=== PATIENT | male | born 1955 | race Caucasian/White ===

== ENCOUNTER 2020-10-16 10:18 | Observation (INO) ==
--- NOTE | 2020-09-24 12:11 | PAT Medication Instructions ---
Medication Instructions Date of Service September 24, 2020 Home Medications betamethasone valerate 1 applic TOPICAL BID PRN cephalexin 500 mg PO TID PRN cholecalciferol (vitamin D3) 1,000 unit PO QAM folic acid 1 mg PO QAM furosemide 20 mg PO DAILY PRN methotrexate sodium 20 mg PO WK omeprazole 20 mg PO QAM prednisone 5 mg PO QAM Continue as directed betamethasone valerate 1 applic TOPICAL BID PRN (just do not use near surgical site prior to surgery) ASK your prescriber and surgeon methotrexate sodium 20 mg PO WK DO NOT take the morning of surgery cholecalciferol (vitamin D3) 1,000 unit PO QAM folic acid 1 mg PO QAM furosemide 20 mg PO DAILY PRN Take morning of surgery With a small sip of water, OTHERWISE NOTHING TO EAT OR DRINK AFTER MIDNIGHT: cephalexin 500 mg PO TID PRN (if needed) omeprazole 20 mg PO QAM prednisone 5 mg PO QAM Take evening before surgery cephalexin 500 mg PO TID PRN (if needed) furosemide 20 mg PO DAILY PRN (if needed) Other Notes If you have any questions please call us at [phone] or [phone] or [phone] or [phone]
--- NOTE | 2020-09-29 14:29 | Anesthesiology Consultation ---
Date of Service September 29, 2020 Assessment & Plan (1) Encounter for pre-operative examination: COVID Status: As of 09/29 assessment, patient denies travel to endemic area, known exposure/sick contacts, or symptoms of COVID19. Patient instructed that they and their household members must follow strict social distancing guidelines, wear a mask in public and avoid travel/events/gatherings for 14 days prior to surgery. Preoperative COVID19 testing to be completed prior to surgery per surgeon's arrangements. Patient made aware to self-isolate as much as possible between COVID testing and surgery. *Presumably will have SAB for ALLEN, but FYI likely difficult intubation based on exam -- had SAB for inguinal hernia repair at [facility] in 2014, but no indication in records as to the reason for this. Chart Review Chart Review: Acceptable Risk for Surgery and Patient seen in Pre Admission Testing Teaching & Discussion Instructed NPO after midnight before surgery, except medications with 15 cc of water. Medication instructions provided according to the PAT guidelines. History Surgery Operation Date: 10/16/20 07:00 Proposed Procedures p Right Lateral Total Hip Arthroplasty - Reginaldo Hayes, Height/Weight Height: 5 ft 8 in Weight: 103.2 kg Allergies Allergy/AdvReac Type Severity Reaction Status Date / Time No Known Allergies Allergy Verified 08/31/20 10:23 Medications Home Medications Medication Instructions Recorded Confirmed Last Taken betamethasone valerate 1 applic TOPICAL BID PRN #0 06/10/13 09/29/20 Unknown cephalexin 500 mg PO TID PRN #0 06/10/13 09/29/20 Unknown cholecalciferol (vitamin D3) 1,000 unit PO QAM #0 tab 06/10/13 09/29/20 03/11/19 folic acid 1 mg PO QAM #0 06/10/13 09/29/20 03/11/19 furosemide 20 mg PO DAILY PRN #0 tab 06/10/13 09/29/20 Unknown methotrexate sodium 20 mg PO WK #0 tab 06/10/13 09/29/20 03/06/19 omeprazole 20 mg PO QAM #0 cap 06/10/13 09/29/20 03/11/19 prednisone 5 mg PO QAM 03/11/19 09/29/20 03/11/19 Past Medical History Medical History Cervical pain (neck) GERD (gastroesophageal reflux disease) Rheumatoid arthritis Exercise / Class Metabolic Activity III < 4 Walking/Shop/Light housework (Denies CP or SOB with ambulation, limited by hip pain, uses stair lift) Past Surgical History Surgical History History of colonoscopy History of esophagogastroduodenoscopy (EGD) History of surgery on left wrist History of surgery on right wrist Hx of hand surgery left/ right x2 arthritis related Hx of inguinal hernia repair Hx of surgical procedure cyst removed from side of left knee Past Anesthesia History No Hx of Anesthesia Complications and No Family Hx of Anesthesia Complications History of PONV No Hx of PONV and No Hx of Motion Sickness Social History Smoking Status: Former smoker Do You Dip or Chew Tobacco: No Smoking End Date: as teen Hx Alcohol Use: No Hx Substance Use: Yes substance use type: marijuana Substance Use Type Other:: marijuana use sporadic > not daily Review of Systems Pt denies any recent chest pain, shortness of breath, palpitations, cough, fever, URI, or uncontrolled acid reflux (on PPI). Physical Exam Vital Signs BP: 162/82 (pt reports h/o white coat HTN) P: 68bpm SPO2: 96% RA T: 98.4 F R: 12 ENMT Mouth: + TMJ abnormality (narrow opening ) and + small oral opening Thyromental Distance: < 3.5 Finger Breadths (2.5) Mallampati Class: IV Neck + thick neck and + limited neck extension Respiratory normal respiratory effort, lungs clear to auscultation Cardiovascular Rate/Rhythm: regular rate and regular rhythm Heart Sounds: + murmur (I/ systolic) Extremities: + edema (Rt ankle edema, chronic, at baseline per pt) Musculoskeletal Kennard neck deformities of all fingers. RA deformities of B/L wrists. Testing Laboratory Results 09/29/20 14:50 09/29/20 14:50 PT 10.6 Seconds (9.0-12.0) 09/29/20 14:50 INR 1.0 (0.9-1.1) 09/29/20 14:50 APTT 26.9 Seconds (21.0-31.0) 09/29/20 14:50 Blood Type A Positive 09/29/20 14:50 Antibody Screen NEGATIVE 09/29/20 14:50 Electrocardiogram Date: 09/29/20 Findings: + NSR @ (70bpm) Chest X-Ray Date: 09/29/20 Findings: + NAD Cervical Spine Date: 09/29/20 FINDINGS: The cervical spine is visualized from C1 through the superior endplate of T1. Alignment is intact. No fracture or subluxation. Moderate facet degenerative changes within the cervical spine which have progressed. There are also advanced degenerative changes at the C1-C2 interval which has progressed. Prevertebral soft tissues are intact. Disc spaces are preserved. The alignment remains intact throughout flexion and extension. IMPRESSION: 1. No fracture or subluxation within the cervical spine. 2. The alignment remains intact throughout flexion and extension.
[2020-09-29 15:14] LABS: Basophils # (auto) 0.03 K/uL (0-0.2); Basophils % (auto) 0.3 %; Eosinophils # (auto) 0.11 K/uL (0-0.5); Eosinophils % (auto) 1.1 %; Hematocrit (blood only) 44.8 % (42-52); Hemoglobin 15.2 g/dL (14.0-18.0); Immature Granulocytes # (auto) 0.02 K/uL (0.00-0.02); Immature Granulocytes % (auto) 0.2 %; Lymphocytes # (auto) 0.93 K/uL (1.2-3.4); Mean Corpuscular Hemoglobin 32.2 pg (25-34); Mean Corpuscular Hgb Conc 33.9 g/dL (32-36); Mean Corpuscular Volume 94.9 fL (80-100); Mean Platelet Volume 10.1 fL (7.4-10.4); Monocytes % (auto) 6.8 %; Neutrophils # (auto) 8.53 K/uL (1.4-6.5); Neutrophils % (auto) 82.6 %; Platelet Count 226 K/uL (130-400); RDW Coefficient of Variation 13.3 % (11.5-14.5); Red Blood Count 4.72 M/uL (4.7-6.1); White Blood Count 10.32 K/uL (4.8-10.8)
[2020-09-29 15:28] LABS: Partial Thromboplastin Time 26.9 Seconds (21.0-31.0); Prothrombin Time 10.6 Seconds (9.0-12.0)
--- NOTE | 2020-09-29 15:37 | XRay Report ---
XR chest Pre-admission PA/Lat CLINICAL HISTORY: Preoperative chest COMPARISON STUDY: No previous studies for comparison. FINDINGS: The cardiac and mediastinal contours are normal. There is no evidence of focal pulmonary co nsolidation. There is no evidence of failure. No pleural effusions are visualized.[ IMPRESSION: No active disease in the chest. ACT 112: Negative or not required by law. Electronically signed by: Royal Paul M.D. 09/29/2020 3:35 PM
--- NOTE | 2020-09-29 15:43 | XRay Report ---
XR cervical spine 2 or 3V CLINICAL HISTORY: pre op. Rheumatoid arthritis. Lateral flexion/extension/neutral. COMPARISON STUDY: Cervical spine 06/10/2013. FINDINGS: The cervical spine is visualized from C1 through the superior endplate of T1. Alignment is intact. No fracture or subluxation. Moderate facet degenerative changes within the cervical spine whi ch have progressed. There are also advanced degenerative changes at the C1-C2 interval which has prog ressed. Prevertebral soft tissues are intact. Disc spaces are preserved. The alignment remains intact throughout flexion and extension. IMPRESSION: 1. No fracture or subluxation within the cervical spine. 2. The alignment remains intact throughout flexion and extension. ACT 112: Negative or not required by law. Electronically signed by: Raymond Reddy M.D. 09/29/2020 3:42 PM
[2020-09-29 16:47] LABS: Calcium 8.8 mg/dl (8.5-10.1); Creatinine Clr Calc Pharmacy 98.6 ml/min; Est GFR (Non-African American) 90.6; Potassium 3.9 mmol/L (3.5-5.1)
--- NOTE | 2020-09-30 06:34 | Electrocardiogram Report ---
Test Reason : Blood Pressure : / mmHG Vent. Rate : 070 BPM Atrial Rate : 070 BPM P-R Int : 126 ms QRS Dur : 088 ms QT Int : 398 ms P-R-T Axes : 074 017 026 degrees QTc Int : 429 ms Normal sinus rhythm Normal ECG No previous ECGs available Confirmed by Sam Alvarado ([id number]) on 09/30/2020 6:34:01 AM Referred By: Reginaldo Hayes Confirmed By:Sam Alvarado
--- NOTE | 2020-10-15 15:44 | History & Physical Report ---
Date of Service October 15, 2020 Assessment & Plan (1) Rheumatoid arthritis involving right hip: We will proceed with a right total hip arthroplasty. Postoperatively he will be started on aspirin for DVT prophylaxis and kept overnight in the hospital for postoperative medical management. He plans to use [facility] upon discharge. History of Present Illness Chief Complaint: Rheumatoid arthritis of the right hip. Primary Care Provider: Xavier Holly MD Daryl is a pleasant 65-year-old male who has been dealing with rheumatoid art hritis since he was 15 years old. He has been on long-term prednisone for it. Unfortunately he has gone on to develop advanced osteoarthritis of his right hip. After failing extensive conservative treatment, he has elected proceed with a right total hip arthroplasty.. Allergies Allergy/AdvReac Type Severity Reaction Status Date / Time No Known Allergies Allergy Verified 08/31/20 10:23 Home Medications Medication Instructions Recorded Confirmed Type betamethasone valerate 1 applic TOPICAL BID PRN #0 06/10/13 09/29/20 History cephalexin 500 mg PO TID PRN #0 06/10/13 09/29/20 History cholecalciferol (vitamin D3) 1,000 unit PO QAM #0 tab 06/10/13 09/29/20 History folic acid 1 mg PO QAM #0 06/10/13 09/29/20 History furosemide 20 mg PO DAILY PRN #0 tab 06/10/13 09/29/20 History methotrexate sodium 20 mg PO WK #0 tab 06/10/13 09/29/20 History omeprazole 20 mg PO QAM #0 cap 06/10/13 09/29/20 History prednisone 5 mg PO QAM 03/11/19 09/29/20 History Past Med/Surg History Medical History Cervical pain (neck) GERD (gastroesophageal reflux disease) Obesity Rheumatoid arthritis Surgical History History of colonoscopy History of esophagogastroduodenoscopy (EGD) History of surgery on left wrist History of surgery on right wrist Hx of hand surgery left/ right x2 arthritis related Hx of inguinal hernia repair Hx of surgical procedure cyst removed from side of left knee Social History Smoking Status: Former smoker Second Hand Exposure: No; Hx Alcohol Use: No Hx Substance Use: Yes Substance Use Type Other:: marijuana use sporadic > not daily Preferred Language: Lithuanian Communication Ability: Effective Credit Verification Clerk Required: No Beliefs That Will Affect Care: None marital status: Single Current Living Situation: Alone current occupational status: unemployed and disabled Feels Safe at Home: Yes Assistive Devices: Glasses Review of Systems All systems reviewed & are unremarkable except as noted in HPI & below. Physical Exam On physical examination of the right hip, he ambulates with a very antalgic gait. He has almost no range of motion of his hip. I can flex him but there is no internal or external rotation. All of his pain is located in his groin.. Constitutional WD/WN, vitals as above Eyes PERRL, conjunctivae normal, anicteric sclerae ENMT external ear and nose normal, oropharynx normal Neck trachea midline, no thyromegaly Respiratory normal respiratory effort Cardiovascular RRR, no murmur, no edema Gastrointestinal (Abdomen) normal bowel sounds, soft, nontender, no hepatosplenomegaly Psychiatric A+Ox3, euthymic affect Results & Data Results & Data Laboratory Results . Diagnostic Findings X-rays of the right hip show advanced rheumatoid arthritis with joint space narrowing, osteophyte formation, and [id number] articulation. PG Care Time/CCT Total # of Minutes Spent Total Time Spent with Patient: Total time spent is greater than 50% in coordination of care (as documented) at patient's floor/unit and/or counseling patient: Coding Level of Care Code None Diagnoses Rheumatoid arthritis involving right hip M06.9
[~2020-10-16 10:18] MED LIST: ACETAMINOPHEN 500 MG TAB PO SCH; BUPIVACAINE 0.5 % 5 MG/1 ML PF 10ML VIAL ONE; FAMOTIDINE 20 MG TAB PO SCH; GABAPENTIN 300 MG CAP PO SCH; LR 500ML BOLUS, THEN 15ML/HR IV SCH; LR 60ML/HR IV SCH; ROPIVACAINE 0.5% HCL/PF 150 MG, BUPIVACAINE 0.75% MPF 20 ML, EPINEPHrine 30MG/30ML (OR ... INSTIL SCH; TRANEXAMIC ACID 1,000 MG **IV Intra-op IV SCH; TRANEXAMIC ACID 1,000 MG **IV Pre-op IV SCH; dexAMETHasone 4 MG TAB PO SCH
[2020-10-16] MEDS ORDERED: HYDROmorphone INJ 1 MG/ML SYRINGE IV PRN (10:32)
[2020-10-16] MEDS ORDERED: ePHEDrine sulfate 50 MG/ML AMP IV PRN (10:32)
[2020-10-16] MEDS ORDERED: MEPERIDINE HCL 25 MG/ML CARP/VIAL IV PRN (10:32)
[2020-10-16] MEDS ORDERED: PHENYLEPHRINE 100MCG/ML 5ML SYR IV PRN (10:32)
[2020-10-16] MEDS ORDERED: LABETALOL HCL IV 5 MG/ML 20ML IV PRN (10:32)
[2020-10-16] MEDS ORDERED: ATROPINE SULFATE 0.1 MG/ML 10ML SYR IV PRN (10:32)
[2020-10-16] MEDS ORDERED: ONDANSETRON INJ 2 MG/ML 2 ML VIAL IV PRN ×2 (10:32→15:57)
[2020-10-16] MEDS ORDERED: fentaNYL citrate 100 MCG/2 ML VIAL IV PRN (10:32)
--- NOTE | 2020-10-16 10:44 | History & Physical Bridge Note ---
Date of Service October 16, 2020 History & Physical Bridge Note I have examined the patient, reviewed the History & Physical and in the interval since the performance of the History & Physical I have noted the following changes of clinical significance: no changes noted
[2020-10-16] MEDS ORDERED: ORTHO JOINT ANESTHETIC ONE (12:19)
[2020-10-16] MEDS ORDERED: LIDOCAINE HCL 2% 2 ML VIAL/AMP(20MG/ML) INFIL ONE (12:19)
[2020-10-16] MEDS ORDERED: PROPOFOL IV EMULSION 10 MG/ML 20 ML VIAL IV ONE ×3 (12:19→14:02)
[2020-10-16] MEDS ORDERED: MIDAZOLAM HCL 1 MG/ML 2ML VIAL ONE (12:20)
[2020-10-16] MEDS ORDERED: HYDROCORTISONE SOD SUCCINATE 100 MG/2 ML VIAL ONE (12:39)
[2020-10-16] MEDS ORDERED: fentaNYL citrate 100 MCG/2 ML VIAL ONE (13:02)
[2020-10-16] MEDS ORDERED: GLYCOPYRROLATE 0.2 MG/ML VIAL ONE (14:02)
[2020-10-16] MEDS ORDERED: ONDANSETRON INJ 2 MG/ML 2 ML VIAL ONE (14:19)
--- NOTE | 2020-10-16 14:45 | Operative Report ---
PG Post Operative Report Pre & Post Diagnosis Operation Date: 10/16/20 12:40 Pre-Op Diagnosis: Right Hip Rheumatoid Arthritis Post-Op Diagnosis: Right Hip Rheumatoid Arthritis I identified the patient and participated in the time-out.: Yes Procedure Operation Date: 10/16/20 12:40 Actual Procedures p Right Lateral Total Hip Arthroplasty(Right) with bone grafting of the acetabulum- Reginaldo Hayes, Surgeon Reginaldo Hayes, Adjunct Political Science Instructor Reginaldo Whatley PAC Estimated Blood Loss 250 Findings Consistent with Post-Op Diagnosis Specimens Right femoral head Complications none Disposition Disposition: Recovery Room Indications Daryl is a pleasant 65-year-old male who is been dealing with chronic increasing right hip and groin pain. X-rays and clinical examination have been diagnostic for advanced rheumatoid arthritis of the right hip. After failing conservative treatment, he has elected proceed with a right lateral total hip arthroplasty. Description of Procedure Implants used I used a Yuly Avenir total hip arthroplasty system with a size 4 high offset collared press-fit Avenir stem, a size 56 mm G7 cup with a 25 mm screw, an E1 polyethylene liner, a 40 mm ceramic head with a 0 neck Daryl arrived at the hospital for the above procedure. He was seen in the preoperative holding area and the operative extremity was identified and signed. He was given a spinal anesthetic, a preoperative antibiotic, and TXA. He was then taken back to the operating room and laid on the table in the supine position. He was given basic sedation. He was then put into the lateral decubitus position. The hip was then prepped and draped in sterile fashion. A timeout was done and the patient and the operative extremity was properly identified. A lateral approach was used. Dissection was taken down to the IT band and the IT band was split longitudinally. The abductors were exposed. The anterior third of the abductors were tenotomized off the greater trochanter. The capsule was then excised and the hip was dislocated. The femoral neck was then resected and the femoral head was removed. The acetabulum was exposed. Time was spent doing a complete circumferential capsular labral release. Sequential reaming of the acetabulum up to a size 55 reamer was done. There was a very large cyst in the acetabulum. This was filled with bone grafting from the reamings as well as the removed femoral head. Time was spent making sure the graft material was appropriately impacted within the cavity. A 56 mm G7 cup was then impacted into place. I was able to get an excellent press-fit. A single 25 mm screw was placed. The E1 polyliner was then snapped into place. Surrounding soft tissues were then injected with 100 cc of an orthopedic pain control cocktail. The proximal femur was then exposed. Sequential broaching up to a size 4 broach was done. A high offset neck and a 40 mm head with a 0 neck was impacted into place. The hip was then reduced. The hip was brought through full range of motion and felt to be stable. A single flat plate x-ray was obtained and I was happy with the overall alignment of the hip and the sizing of the components. The hip was then dislocated. The trials were then removed. The final size 4 Avenir high offset collared stem was then impacted into place. A 40 mm ceramic head with a +0 neck was then impacted onto the femoral stem. The hip was then reduced. The hip was once again brought through a full range of motion and felt to be stable. The wound was then irrigated. A 3-minute Betadine lavage was then done. The abductors were then tenodesed back to the greater trochanter with transosseous FiberWire sutures and side to side sutures. The IT band was closed with #1 Vicryl. The deep fat layer was closed with 2-0 Vicryl. Skin was closed with 2-0 Vicryl and fortunato. He was then placed in a Silverlon dressing. He was then extubated and transferred to a hospital bed. He was taken to the post anesthesia care unit in stable condition. He tolerated the procedure well. Reginaldo Whatley PA-C, was present for the entire procedure. He was critical for patient positioning, prepping, draping, retraction exposure, wound closure and application of sterile dressing. I attest to the content of the Intraoperative Record and any orders documented therein. Any exceptions are noted below.
--- NOTE | 2020-10-16 14:51 | XRay Report ---
XR hip RT 1V HISTORY: 65 years-old Male RT LATERAL HIP TO BE DONE IN OR7 @ 1240 right hip total joint arthroplast y COMPARISON: Radiographs of the right hip 08/18/2020 TECHNIQUE: 2 views of the right hip FINDINGS: Right hip total joint arthroplasty demonstrates satisfactory alignment. Expected postsurgical soft ti ssue swelling and deep tissue air. No acute fracture. Metallic folds project over the right iliac cre st, likely external to the patient. IMPRESSION: Right hip total joint arthroplasty with expected postoperative changes. ACT 112: Negative or not required by law. The above report was generated using voice recognition software. It may contain grammatical, syntax o r spelling errors. Electronically signed by: Joshua Goldberg M.D. 10/16/2020 2:49 PM
--- NOTE | 2020-10-16 15:14 | Anesthesiology Progress Note ---
Date of Service October 16, 2020 Anesthesia Post Procedure Vital Signs Vital Signs: Temp Pulse Pulse Resp BP BP Pulse Ox 10/16/20 15:10 69 16 124/72 94 10/16/20 15:00 72 18 127/72 96 10/16/20 14:50 69 17 113/77 98 10/16/20 14:44 36.1 C L 68 16 116/65 100 10/16/20 10:42 36.8 C 78 22 189/95 H 94 Transfer of Care Handoff Completed per policy Notes Mental Status: alert / awake / arousable and participated in evaluation Patient Amnestic to Procedure: Yes Nausea / Vomiting: adequately controlled Pain: adequately controlled Airway Patency, RR, SpO2: stable & adequate BP & HR: stable & adequate Hydration State: stable & adequate Anesthetic Complications: no major complications apparent and Pt Satisfied with anesthetic care
--- NOTE | 2020-10-16 15:26 | XRay Report ---
XR hip 1V RT w pelvis HISTORY: 65 years-old Male IN PACU - A/P PELVIS and LATERAL HIP right hip total joint arthroplasty COMPARISON: Radiograph the right hip 10/16/2020 TECHNIQUE: 2 views the right hip FINDINGS: Moderate left hip osteoarthritis. Right hip total joint arthroplasty demonstrates satisfactory alignm ent. No acute fracture or expected opaque foreign body. Expected postsurgical soft tissue swelling wi th deep tissue air. Overlying skin fortunato. IMPRESSION: Right hip total arthroplasty with expected postoperative changes. ACT 112: Negative or not required by law. The above report was generated using voice recognition software. It may contain grammatical, syntax o r spelling errors. Electronically signed by: Joshua Goldberg M.D. 10/16/2020 3:24 PM
[2020-10-16] MEDS: SODIUM CHLORIDE 0.9% 1000ML 1,000 ML IV SCH ×2 (15:50→23:45)
[2020-10-16] MEDS ORDERED: MAGNESIUM HYDROXIDE SUSP 30 ML UDC PO PRN (15:57)
[2020-10-16] MEDS ORDERED: bisacodyL 10 MG SUPP PR PRN (15:57)
[2020-10-16] MEDS ORDERED: HYDROmorphone INJ 0.5 MG/0.5 ML SYR IV PRN (15:57)
[2020-10-16] MEDS ORDERED: METOCLOPRAMIDE HCL INJ 5 MG/ML 2 ML VIAL IV PRN (15:57)
[2020-10-16] MEDS ORDERED: FUROSEMIDE 20 MG TAB PO PRN (15:57)
[2020-10-16] MEDS ORDERED: NALOXONE HCL 0.4 MG/1 ML VIAL/CARP IV PRN (15:57)
[2020-10-16] MEDS ORDERED: oxyCODONE HCL IR 5 MG TAB (IMMEDIATE RELEASE) PO PRN (15:57)
[2020-10-16] MEDS: KETOROLAC TROMETHAMINE 15 MG/ML VIAL IV SCH ×2 (18:02→23:45)
[2020-10-16] MEDS: ceFAZolin 2000MG 2,000 MG/15 ML SYR IV SCH (21:06)
[2020-10-16] MEDS: ASPIRIN 81 MG ECTAB PO SCH (21:07)
[2020-10-16] MEDS: SENNA 8.6 MG TAB PO SCH (21:07)
[2020-10-16] MEDS: DOCUSATE SODIUM 100 MG CAP PO SCH (21:07)
[2020-10-16] MEDS: ACETAMINOPHEN 500 MG TAB PO SCH (21:07)
[2020-10-17] MEDS: ACETAMINOPHEN 500 MG TAB PO SCH ×3 (05:42→21:42)
[2020-10-17] MEDS: ceFAZolin 2000MG 2,000 MG/15 ML SYR IV SCH (05:42)
[2020-10-17] MEDS: KETOROLAC TROMETHAMINE 15 MG/ML VIAL IV SCH ×4 (05:42→23:09)
--- NOTE | 2020-10-17 06:52 | Orthopedic Progress Note ---
Date of Service October 17, 2020 Assessment & Plan (1) History of right hip replacement: Overall is doing very well. Is not having much pain in the right hip. He will be seen by physical therapy today for ambulation and range of motion exercises. He is on aspirin for DVT prophylaxis. He does live alone. I would like to keep him in the hospital today and then likely discharge him to home tomorrow. He should be seen by case management later today. Xiao Brito was seen and examined at bedside this morning. Overall he is doing very well. Is not having much pain in the right hip. He was able to ambulate to the doorway yesterday with the nursing staff. He has no complaints.. Review of Systems All systems reviewed & are unremarkable except as noted in HPI & below. Physical Exam On physical examination of the right hip, the dressing is clean and dry. His leg lengths are equal. He has active dorsiflexion plantarflexion of his right ankle.. Results & Data Results & Data Laboratory Results . Diagnostic Findings Postoperative x-rays of the right hip show the prosthesis to be in anatomic alignment without any evidence of fracture, dislocation, or loosening. PG Care Time/CCT Total # of Minutes Spent Total Time Spent with Patient: Total time spent is greater than 50% in coordination of care (as documented) at patient's floor/unit and/or counseling patient: Coding Level of Care Code 50353 Post Operative Follow-Up Diagnoses History of right hip replacement Z96.641
[2020-10-17] MEDS: DOCUSATE SODIUM 100 MG CAP PO SCH ×2 (08:47→21:42)
[2020-10-17] MEDS: MULTIVITAMIN TAB PO SCH (08:47)
[2020-10-17] MEDS: FOLIC ACID 1 MG TAB PO SCH (08:47)
[2020-10-17] MEDS: ASPIRIN 81 MG ECTAB PO SCH ×2 (08:47→21:42)
[2020-10-17] MEDS: predniSONE 5 MG TAB PO SCH (08:47)
[2020-10-17] MEDS: SENNA 8.6 MG TAB PO SCH (21:41)
[2020-10-18] MEDS: ACETAMINOPHEN 500 MG TAB PO SCH ×3 (06:24→22:27)
[2020-10-18] MEDS: KETOROLAC TROMETHAMINE 15 MG/ML VIAL IV SCH ×2 (06:24→12:41)
[2020-10-18] MEDS: DOCUSATE SODIUM 100 MG CAP PO SCH ×2 (07:59→20:03)
[2020-10-18] MEDS: predniSONE 5 MG TAB PO SCH (07:59)
[2020-10-18] MEDS: MULTIVITAMIN TAB PO SCH (07:59)
[2020-10-18] MEDS: ASPIRIN 81 MG ECTAB PO SCH ×2 (07:59→20:02)
[2020-10-18] MEDS: FOLIC ACID 1 MG TAB PO SCH (07:59)
--- NOTE | 2020-10-18 08:44 | Orthopedic Progress Note ---
Date of Service October 18, 2020 Assessment & Plan (1) History of right hip replacement: Overall is doing very well. Is not having much pain in the right hip. He will be seen by physical therapy again today for ambulation and range of motion exercises. He is using a forearm platform walker. He is hoping to be discharged to home tomorrow. Xiao Brito was seen and examined at bedside this morning. Overall he is doing very well. He has been ambulating well with physical therapy. He is not having too much pain in his right hip. He has no complaints.. Review of Systems All systems reviewed & are unremarkable except as noted in HPI & below. Physical Exam On physical examination of the right hip, the dressing is clean and dry. His leg lengths are equal. He has active dorsiflexion plantarflexion of his right ankle. Results & Data Results & Data Laboratory Results . Diagnostic Findings . PG Care Time/CCT Total # of Minutes Spent Total Time Spent with Patient: Total time spent is greater than 50% in coordination of care (as documented) at patient's floor/unit and/or counseling patient: Coding Level of Care Code 21893 Post Operative Follow-Up Diagnoses History of right hip replacement Z96.641
[2020-10-18] MEDS: SENNA 8.6 MG TAB PO SCH (20:03)
[2020-10-19] MEDS: ACETAMINOPHEN 500 MG TAB PO SCH (06:41)
[2020-10-19] MEDS: ASPIRIN 81 MG ECTAB PO SCH (08:30)
[2020-10-19] MEDS: DOCUSATE SODIUM 100 MG CAP PO SCH (08:30)
[2020-10-19] MEDS: MULTIVITAMIN TAB PO SCH (08:31)
[2020-10-19] MEDS: predniSONE 5 MG TAB PO SCH (08:31)
[2020-10-19] MEDS: FOLIC ACID 1 MG TAB PO SCH (08:31)
--- NOTE | 2020-10-19 09:02 | Orthopedic Progress Note ---
Date of Service October 19, 2020 Assessment & Plan (1) History of right hip replacement: Overall he seems to be doing fairly well. He has bad rheumatoid arthritis. He is using a forearm platform walker. He seems pretty optimistic with how he is doing. I had discussions with him at bedside about going to rehab, but he is very adamant that he would like to go home. If he works well with physical therapy today I think that is reasonable. We can discharge him to home later today. He is on aspirin for DVT prophylaxis. Xiao Brito was seen and examined at bedside this morning. Overall is doing very well. Is not having much pain in the right hip. He has been working well with physical therapy. There has been some concerns about him returning home, however, he is fairly insistent that he would like to go home. He has someone coming by the house daily and he has friends and family nearby who can help.. Review of Systems All systems reviewed & are unremarkable except as noted in HPI & below. Physical Exam On physical examination of the right hip, the Silverlon dressing is clean and dry. His leg lengths are equal. He has active dorsiflexion plantarflexion of his right ankle.. Results & Data Results & Data Laboratory Results . Diagnostic Findings . PG Care Time/CCT Total # of Minutes Spent Total Time Spent with Patient: Total time spent is greater than 50% in coordination of care (as documented) at patient's floor/unit and/or counseling patient: Coding Level of Care Code 52348 Post Operative Follow-Up Diagnoses History of right hip replacement Z96.641
--- NOTE | 2020-10-19 09:03 | Discharge Summary ---
Date of Service October 19, 2020 Admission HPI (Per Admitting) Daryl is a pleasant 65-year-old male who has been dealing with rheumatoid arthritis since he was 15 years old. He has been on long-term prednisone for it. Unfortunately he has gone on to develop advanced osteoarthritis of his right hip. After failing extensive conservative treatment, he has elected proceed with a right total hip arthroplasty.. Admission Exam (Per Admitting) On physical examination of the right hip, he ambulates with a very antalgic gait. He has almost no range of motion of his hip. I can flex him but there is no internal or external rotation. All of his pain is located in his groin.. Principal Diagnosis Same as "Discharge Diagnosis" noted below under Discharge Instructions. Discharge Exam On physical examination of the right hip, the Silverlon dressing is clean and dry. His leg lengths are equal. He has active dorsiflexion plantarflexion of his right ankle.. Discharge Data Procedures Performed Operation Date: 10/16/20 12:40 Actual Procedures p Right Lateral Total Hip Arthroplasty(Right) - Reginaldo Hayes DO Hospital Course (1) History of right hip replacement: On October 16, 2020 Daryl arrived at [facility] and underwent a right lateral hip replacement without complication. He had a spinal anesthetic. Postoperatively he was started on aspirin for DVT prophylaxis and transferred to the general orthopedic floors. His hospital course was uneventful. On postop day #1 his vital signs were stable and his pain was well controlled. He was able to participate well with physical therapy using a forearm platform walker. On postop day #2 he continued to do fairly well. He was fairly adamant that he wanted to be discharged to home. We did want keep him an extra day for him to get some more physical therapy and strengthening and to help with pain control before discharge to home. On postop day #3 he continued to do well. He was not having too much pain in the hip. He felt confident about returning home. He worked once again with physical therapy and then was discharged to home. He will follow-up with orthopedics in 2 weeks. PG Care Time/CCT Total # of Minutes Spent Total Time Spent with Patient: Total time spent is greater than 50% in c oordination of care (as documented) at patient's floor/unit and/or counseling patient: Discharge Plan Discharge Items Patient Disposition: Home - Home Health Services Reason For Visit: Right Hip Degenerative Joint Disease Discharge Diagnosis: Right hip replacement Activity: As commented below Non-emergency contact: Surgeon Call non-emergency contact if: your wound has increased redness and your wound has increased drainage Follow-up/Referrals: Xavier Holly MD [Primary Care Provider] - Diet: Regular Addtl Attending Provider Instructions: Activity and Therapy Recommendations: * If you are using [facility] then therapy will be provided at your home until they feel you have accomplished all of your goals. * If you are using [facility] then Physical Therapy will be provided until they feel you are ready to start Outpatient Physical Therapy. * If you are not using home therapy then Outpatient Physical Therapy should start about 3-5 days from your day of surgery. Therapy will last about 6-10 weeks * You were shown a series of exercises in the hospital. Do these exercises three times each day including the exercises you were shown in physical therapy. * Get up and walk several times each day.~ For the first four weeks, try not to stand or walk for more than one hour at a time. If you do stand or walk for more than one hour, you will not hurt anything, but your leg will likely swell.~~ * As you feel comfortable, you may change from the walker or crutches to a cane and~then to independent walking. Medications: * Narcotic You will likely be sent home from the hospital with a prescription for the narcotic pain medication that worked best throughout your stay. * Aspirin Most patients will be required to take Aspirin 81mg twice a day for 6 weeks after surgery. This is obtained [id number] and a prescription is not necessary. * Other medications may be prescribed for specific circumstances. If you have any questions, please call the office at . * Resume previous home medications unless otherwise instructed TEDs/Elastic Stockings: The white elastic stockings help limit swelling and prevent blood clots from forming in your legs. The more you wear them, the more they work. Wear them for six weeks. Dressing Care: Leave the Silverlon dressing in place for 7 days. After 7 days you may remove the dressing. If the incision is not draining then you may leave the fortunato open to air. If there is a little bit of drainage or if the fortunato are getting stuck on your clothing then cover the incision with a dry dressing. The fortunato will be removed at your 2 week follow-up appointment. Showering: You may shower with the Silverlon dressing in place. Do not let the shower spray hit the dressing directly. Pat the Silverlon dressing dry. If the dressing becomes wet underneath, then simply remove the dressing. Keep the incision dry until you are 7 days out from the day of surgery. After 7 days you may remove the Silverlon dressing and shower with the fortunato exposed. Let soapy water run over the fortunato and pat them dry. Do not scrub or soak the incision. Things To Watch For: * Drainage from the incision site that occurs more than one week after your surgery. * Increased redness at the incision site. * Fever above 102 degrees Fahrenheit. * Unusual chest pain or shortness of breath. * Call [facility] at with any of the above problems Follow-Up Visit: Follow-up with Dr. Hayes's PA (Reginaldo Whatley) 2-3 weeks after your day of surgery. He will remove your fortunato and answer any questions. If you have any additional questions or concerns, Dr Hayes is usually in the office at the same time and will be available An appointment was probably scheduled when you signed-up for surgery in the office. If you have any questions call Office Instructions: More detailed instructions as well as Frequently Asked Questions were provided in a folder by our office when you signed-up for surgery. Please review these instructions when you get home. If you have any further questions or concerns, please feel free to call the office at [phone] Pending Studies at Discharge: No Stand[facility]Alone [facility]: [facility] Cessation Medications and DC Order Prescriptions: New oxycodone 5 mg Tablet 5 mg PO Q4H PRN (Reason: pain) Qty: 40 RF: 0 aspirin 81 mg Tablet,Delayed Release (Dr/Ec) 81 mg PO BID 42 Days Qty: 84 RF: 0 Continued betamethasone valerate 0.1 % Ointment 1 applic topical BID PRN (Reason: Skin Irritation) Qty: 0 RF: 0 folic acid 400 mcg Tablet 1 mg PO QAM Qty: 0 RF: 0 methotrexate sodium 2.5 mg Tablet 20 mg PO WK Qty: 0 RF: 0 furosemide 20 mg Tablet 20 mg PO DAILY PRN (Reason: Edema) Qty: 0 RF: 0 cholecalciferol (vitamin D3) 1,000 unit Capsule 1,000 unit PO QAM Qty: 0 RF: 0 omeprazole 20 mg Tablet,Delayed Release (Dr/Ec) 20 mg PO QAM Qty: 0 RF: 0 (DME) 3-in-1 Commode Misc See Rx Instructions .MEDSUPPLY Qty: 1 RF: 0 (DME) [facility] See Rx Instructions .MEDSUPPLY Qty: 1 RF: 0 prednisone 5 mg Tablet 5 mg PO QAM RF: 0 Discharge Orders: Discharge Order (Routine); Ordered 10/19/20 Ordered By: Reginaldo Hayes Admission Data Admit Date/Time: 10/16/20 14:43 Attending Provider: Reginaldo Hayes Admit Provider: Reginaldo Hayes Primary Care Provider: Xavier Holly Other Providers: [facility]
[2020-10-20] MEDS ORDERED: metHOTREXate sodium 2.5 MG TAB PO SCH (08:00)
== END 2020-10-19 12:21 | disposition home health service (06) ==
LOC: 3E 10:18 → ASU 10:18

== ENCOUNTER 2022-09-20 12:56 | Observation (INO) ==
[2022-09-20] MEDS ORDERED: ASPIRIN CHEW 324 MG PO STA (13:12)
[2022-09-20] MEDS ORDERED: MoRPHine SULFATE 4 MG/ML 1 ML CARP\\VIAL IV STA (13:24)
--- NOTE | 2022-09-20 13:27 | Emergency Department Note ---
Impression & Plan Chest pain, Non-ST elevation WA (NSTEMI) ED Provider Note HISTORY OF PRESENT ILLNESS: Patient is a 67-year-old male presenting with substernal chest pain. Patient reports pain started last night while he was laying in bed. He had continued pain throughout the night and into this morning, prompting presentation to the emergency department. He denies taking anything for the pain. Describes the pain as a pressure and tightness sensation in the chest. Reports associated shortness of breath. Symptoms are worse with ambulation. He denies any history of cardiac stents. He is not on any anticoagulation. Denies any DVT or PE history. Denies any recent cough or fevers. Patient is a former smoker and quit over 30 years ago ROS: as above PHYSICAL EXAM: Constitutional: Patient appears in no acute distress. HENT: Head: Normocephalic and atraumatic. Eyes: EOMI, PERRL Mouth/Throat: Mucous membranes moist. Neck: Trachea midline. Neck supple. Cardiovascular: RRR, No murmurs, rubs or gallops. Intact distal pulses. Pulmonary/Chest: No respiratory distress. Breath sounds clear and equal bilaterally. No wheezes or rales. Abdominal: BS +. Abdomen soft, no tenderness, rebound or guarding. Back: No midline spinal tenderness, no paraspinal tenderness, no CVA tenderness. Musculoskeletal: No tenderness or deformity noted. Notable swelling to the right lower extremity, which patient reports is chronic Skin: Warm and dry. No rash, erythema, pallor or cyanosis Psychiatric: Appropriate mood and affect for situation. Neurological: Alert and keenly responsive. CN II-XII grossly intact, moving all extremities equally and fully. MDM: - Vitals signs showed hypertension and tachycardia - History obtained via patient. Patient presents with substernal chest pain. Patient reports he developed substernal chest pressure starting last night that is been constant throughout the evening and into the morning. He denies any CAD history. Denies any history of cardiac stents. He is not on any anticoagulation. Reports chest pressure has continued throughout the morning and he feels short of breath. Denies any anticoagulation use. Denies any recen t fevers, cough or sick contact exposures. - Chronic conditions affecting care: rheumatoid arthritis - Differential diagnoses include, but are not limited to: Acute coronary syndrome; pulmonary embolism; dissection; tension pneumothorax; esophageal rupture; pneumonia - Order placed for continuous cardiac monitoring. At this time, monitor showed rate of 85 bpm with normal sinus rhythm, per my interpretation. - External medical records reviewed. Patient has no prior stress tests notable in our system. - EKG reviewed by myself showed normal sinus rhythm. Rate 79 bpm. QTc 348. No acute ischemic changes. Patient noted to have occasional PVCs. Appears similar to EKG from September 2020. - Laboratory workup interpreted by myself showed slight leukocytosis (WBC 12.5); stable electrolytes; elevated troponin (61.3); elevated dimer - CXR showed cardiomegaly, per my interpretation. - Patient given 324 mg PO aspirin in ER. On reassessment, he is chest pain free. - Regarding PE, the patient is low risk by Wells' criteria. D dimer obtained and elevated. CTA chest obtained. - Repeat troponin ordered. - Heart score 5 (History +1 moderately suspicious; EKG +0; Age +2; Risk factors +1; Initial troponin +1), amounting to a moderate score. - Discussion was had with geriatric social work professor about patient's case and need for admission. - Hospitalist consulted for admission. - Patient admitted to [facility] Hospitalist service for further evaluation and management. I provided 33 minutes of critical care time to this patient's care outside of billable procedures. ASSESSMENT AND PLAN: Diagnosis: chest pain; NSTEMI Plan: admit Past Med/Surg History Medical History (Updated 09/20/22 @ 15:39 by Starr Davis MD) Cervical pain (neck) GERD (gastroesophageal reflux disease) Obesity Rheumatoid arthritis Surgical History (Updated 10/16/20 @ 14:46 by Reginaldo Hayes DO) History of colonoscopy History of esophagogastroduodenoscopy (EGD) History of right hip replacement (~10/2020) History of surgery on left wrist History of surgery on right wrist Hx of hand surgery left/ right x2 arthritis related Hx of inguinal hernia repair Hx of surgical procedure cyst removed from side of left knee Social History Smoking Status: Former smoker Second Hand Exposure: No; Hx Alcohol Use: No Hx Substance Use: Yes Substance Use Type Other:: marijuana use sporadic > not daily Preferred Language: Jamaican Communication Ability: Effective Utility Bagger Required: No Beliefs That Will Affect Care: None marital status: Single Current Living Situation: Alone current occupational status: unemployed and disabled Feels Safe at Home: Yes Assistive Devices: Walker Allergies Allergies Allergy/AdvReac Type Severity Reaction Status Date / Time No Known Allergies Allergy Verified 09/20/22 14:39 Home Meds Home Medications Medication Instructions Recorded Confirmed betamethasone valerate 0.1 % 1 applic topical BID PRN Skin 06/10/13 09/20/22 topical ointment Irritation ##0 cholecalciferol (vitamin D3) 25 1,000 unit PO QAM #0 tabs 06/10/13 09/20/22 mcg (1,000 unit) capsule furosemide 20 mg tablet 20 mg PO DAILY PRN Edema #0 tabs 06/10/13 09/20/22 methotrexate sodium 2.5 mg tablet 20 mg PO WK #0 tabs 06/10/13 09/20/22 omeprazole 20 mg tablet,delayed 20 mg PO QAM #0 caps 06/10/13 09/20/22 release prednisone 5 mg tablet 5 mg PO QAM 03/11/19 09/20/22 folic acid 1 mg tablet 1 mg PO DAILY 09/20/22 09/20/22 Previous Rx's Medication Instructions Recorded 3-in-1 Commode #1 ea 10/19/20 Viet Hose #1 ea 10/19/20 Results & Data (ED) Vital Signs Vital Signs - 24 hr 09/20/22 13:00 09/20/22 13:07 09/20/22 13:39 Temperature 37.2 C Temperature Source Temporal Artery Scan Pulse Rate 118 H Pulse Rate [Left Apical] 90 Pulse Rhythm Regular Respiratory Rate 16 16 Respiratory Effort / Characteristics Non-Labored Spontaneous Short of Breath Respiratory Depth Normal Blood Pressure 144/103 H Blood Pressure [Left Arm] 153/90 H Blood Pressure Mean 116 Blood Pressure Mean [Left Arm] 111 Pulse Oximetry 97 95 Oxygen Delivery Method Room Air Room Air Sepsis Recent Fever Within 48 Hours No Sepsis New/Unexplained Change in Mental Status No Sepsis Action Taken by Nursing No Action Required 09/20/22 13:42 09/20/22 13:39 09/20/22 14:00 Temperature Temperature Source Pulse Rate 84 91 H 88 Pulse Rate [Left Apical] Pulse Rhythm Respiratory Rate 20 20 Respiratory Effort / Characteristics Respiratory Depth Blood Pressure 153/90 H 140/78 Blood Pressure [Left Arm] Blood Pressure Mean 111 98 Blood Pressure Mean [Left Arm] Pulse Oximetry 95 94 Oxygen Delivery Method Room Air Room Air Sepsis Recent Fever Within 48 Hours Sepsis New/Unexplained Change in Mental Status Sepsis Action Taken by Nursing Laboratory Data 09/20/22 13:12 09/20/22 13:12 Lab Results 09/20/22 09/20/22 09/20/22 Range/Units 13:12 13:12 13:12 WBC 12.50 H (4.8-10.8) K/ul RBC 4.90 (4.70-6.10) M/uL Hgb 15.5 (14.0-18.0) g/dl Hct 46.4 (42.0-52.0) % MCV 94.7 (80.0-100.0) fL MCH 31.6 (25.0-34.0) pg MCHC 33.4 (32.0-36.0) g/dL RDW Std Deviation 46.2 (36.4-46.3) fL RDW Coeff of Christy 13.3 (11.5-14.5) % Plt Count 214 (130-400) K/uL MPV 9.9 (9.4-12.4) fL Immature Gran % (Auto) 0.4 % Neut % (Auto) 81.6 % Lymph % (Auto) 7.7 % [place] % (Auto) 9.9 % Eos % (Auto) 0.2 % Baso % (Auto) 0.2 % Neut # (Auto) 10.20 H (1.40-6.50) K/uL Lymph # (Auto) 0.96 L (1.2-3.4) K/uL [place] # (Auto) 1.24 H (0.11-0.59) K/uL Eos # (Auto) 0.02 (0-0.50) K/uL Baso # (Auto) 0.03 (0-0.2) K/uL Immature Gran # (Auto) 0.05 (0.01-0.20) K/uL PT 11.2 (9.0-12.0) Seconds INR 1.1 (0.9-1.1) D-Dimer 1690 H* (0-500) ug/L FEU Sodium 131 L (136-145) mmol/L Potassium 3.7 (3.5-5.1) mmol/L Chloride 97 L (98-107) mmol/L Carbon Dioxide 28 (21-32) mmol/L Anion Gap 6 (3-11) BUN 10 (6-23) mg/dl Creatinine 0.77 (0.6-1.4) mg/dl Est Cr Clr Drug Dosing 113.3 ml/min Est GFR ( Amer) 108.8 ml/min Est GFR (Non-Af Amer) 93.9 ml/min BUN/Creatinine Ratio 13.0 (10-20) Glucose 159 H (70-99(Fasting)) mg/dl Calcium 8.9 (8.5-10.1) mg/dl Total Bilirubin 1.0 (0.2-1.0) mg/dl AST 16 (13-39) U/L ALT 9 (7-52) U/L Alkaline Phosphatase 80 (34-104) U/L Troponin I High Sens 61.3 H* (0-20) pg/ml Total Protein 7.4 (6.0-8.3) gm/dl Albumin 4.1 (3.4-5.0) gm/dl Globulin 3.3 (2.5-4.0) gm/dl Albumin/Globulin Ratio 1.2 (0.9-2) Lipase 24 (11-82) U/L Administered Medications Discontinued Medications Aspirin (Aspirin Chew 324 Mg) 324 mg PO NOW STA Stop: 09/20/22 13:13 Last Admin: 09/20/22 13:16 Dose: 324 mg Documented By: TOOTIE Ioversol (Optiray 320 500ml) 107 ml IV ONCE ONE Stop: 09/20/22 15:23 Last Admin: 09/20/22 15:22 Dose: 107 ml Documented By: VICTORIANO Morphine Sulfate (Morphine Sulfate 4 Mg/Ml 1 Ml Carp\Vial) 4 mg IV NOW STA Stop: 09/20/22 13:25 Last Admin: 09/20/22 13:31 Dose: 4 mg Documented By: [facility] Imaging Data Radiologist's Impression: Chest X-Ray 09/20/22 13:12 SINGLE VIEW CHEST CLINICAL HISTORY: Atypical chest pain FINDINGS: An AP, portable, upright chest radiograph is compared to study dated 09/29/2020. The examination is degraded by portable technique and apical lordotic positioning. The heart is enlarged. The pulmonary vasculature is noncongested. Chronic interstitial thickening is similar to previous. Scarring/atelectasis is noted at both lung bases. No airspace consolidation or large pleural effusion is identified. No pneumothorax is seen. The skeletal structures are osteopenic. The bony thorax is grossly intact. Advanced arthritic change is seen in the shoulders. IMPRESSION: Cardiomegaly with no acute cardiopulmonary abnormality identified. ACT 112: Negative or not required by law. Electronically signed by: Chinmay Langley M.D. 09/20/2022 1:51 PM Discharge Plan Visit Data Chief Complaint: Chest Pain Stated Complaint: CHEST TIGHTNESS,SOB ED Provider: Starr Davis Discharge Problem: Chest pain, Non-ST elevation WA (NSTEMI) Patient Disposition: Admitted As Inpatient Forms Stand Alone Forms: [facility] Prescriptions Prescriptions: No Action betamethasone valerate 0.1 % Ointment 1 applic topical BID PRN (Reason: Skin Irritation) Qty: 0 methotrexate sodium 2.5 mg Tablet 20 mg PO WK Qty: 0 Rx Instructions: pt takes on wednesdays furosemide 20 mg Tablet 20 mg PO DAILY PRN (Reason: Edema) Qty: 0 cholecalciferol (vitamin D3) 1,000 unit Capsule 1,000 unit PO QAM Qty: 0 omeprazole 20 mg Tablet,Delayed Release (Dr/Ec) 20 mg PO QAM Qty: 0 Rx Instructions: to take before breakfast (DME) 3-in-1 [facility] See Rx Instructions .MEDSUPPLY Qty: 1 0RF Rx Instructions: As directed (DME) Viet Zel[facility] See Rx Instructions .MEDSUPPLY Qty: 1 0RF Rx Instructions: As directed prednisone 5 mg Tablet 5 mg PO QAM folic acid 1 mg Tablet 1 mg PO DAILY Referrals Referrals: Xavier Holly MD [Primary Care Provider] -
--- NOTE | 2022-09-20 13:53 | XRay Report ---
SINGLE VIEW CHEST CLINICAL HISTORY: Atypical chest pain FINDINGS: An AP, portable, upright chest radiograph is compared to study dated 09/29/2020. The examina tion is degraded by portable technique and apical lordotic positioning. The heart is enlarged. The pu lmonary vasculature is noncongested. Chronic interstitial thickening is similar to previous. Scarring /atelectasis is noted at both lung bases. No airspace consolidation or large pleural effusion is iden tified. No pneumothorax is seen. The skeletal structures are osteopenic. The bony thorax is grossly i ntact. Advanced arthritic change is seen in the shoulders. IMPRESSION: Cardiomegaly with no acute cardiopulmonary abnormality identified. ACT 112: Negative or not required by law. Electronically signed by: Chinmay Langley M.D. 09/20/2022 1:51 PM
[2022-09-20 13:57] LABS: Basophils # (auto) 0.03 K/uL (0-0.2); Basophils % (auto) 0.2 %; Eosinophils # (auto) 0.02 K/uL (0-0.50); Eosinophils % (auto) 0.2 %; Hematocrit (blood only) 46.4 % (42.0-52.0); Hemoglobin 15.5 g/dl (14.0-18.0); Immature Granulocytes # (auto) 0.05 K/uL (0.01-0.20); Immature Granulocytes % (auto) 0.4 %; Lymphocytes # (auto) 0.96 K/uL (1.2-3.4); Lymphocytes % (auto) 7.7 %; Mean Corpuscular Hemoglobin 31.6 pg (25.0-34.0); Mean Corpuscular Hgb Conc 33.4 g/dL (32.0-36.0); Mean Corpuscular Volume 94.7 fL (80.0-100.0); Mean Platelet Volume 9.9 fL (9.4-12.4); Monocytes # (auto) 1.24 K/uL (0.11-0.59); Monocytes % (auto) 9.9 %; Neutrophils % (auto) 81.6 %; Platelet Count 214 K/uL (130-400); RDW Coefficient of Variation 13.3 % (11.5-14.5); RDW Standard Deviation 46.2 fL (36.4-46.3)
[2022-09-20 14:07] LABS: Albumin Globulin Ratio 1.2 (0.9-2); Albumin Level 4.1 gm/dl (3.4-5.0); Calcium 8.9 mg/dl (8.5-10.1); Creatinine Clr Calc Pharmacy 113.3 ml/min; Est GFR (African American) 108.8 ml/min; Est GFR (Non-African American) 93.9 ml/min; Globulin 3.3 gm/dl (2.5-4.0); Potassium 3.7 mmol/L (3.5-5.1); Total Protein 7.4 gm/dl (6.0-8.3)
[2022-09-20 14:17] LABS: Troponin I High Sensitivity 61.3 pg/ml (0-20)
[2022-09-20 14:37] LABS: INR 1.1 (0.9-1.1); Prothrombin Time 11.2 Seconds (9.0-12.0)
[2022-09-20 14:44] LABS: D Dimer 1690 ug/L FEU (0-500)
[2022-09-20] MEDS ORDERED: OPTIRAY 320 500ml IV ONE (15:22)
--- NOTE | 2022-09-20 15:45 | CT Scan Report ---
CT angio chest PE protocol CLINICAL HISTORY: chest pain; SOB; elevated dimer TECHNIQUE: Multidetector row helical CT of the chest was performed with angiographic protocol. Oscar l and sagittal reformations were obtained. Coronal and sagittal MIPS were obtained from the axial lauren a set and were submitted for review. Automated dose lowering techniques and/or adjustment according to patient size were utilized for this exam. CT DOSE: 954.20 mGy.cm Comparison: Comparison is made to chest radiograph 09/20/2022 FINDINGS: Lungs and pleura: Atelectasis versus scarring is seen in the dependent portions of the lungs. Heart and pericardium: Cardiomegaly is seen with biatrial enlargement. Vessels: Evaluation for pulmonary embolism is limited due to patient motion. No evidence of central, lobar, or segmental embolus. Mediastinum and sanjay: Unremarkable. Chest wall and lower neck: Unremarkable. Abdomen: Unremarkable. Bones: Degenerative changes in the thoracic spine. IMPRESSION: No pulmonary embolus is seen. ACT 112: Negative or not required by law. Electronically signed by: Lam Guerrier M.D. 09/20/2022 3:42 PM
--- NOTE | 2022-09-20 15:48 | Electrocardiogram Report ---
Test Reason : Blood Pressure : / mmHG Vent. Rate : 079 BPM Atrial Rate : 079 BPM P-R Int : 124 ms QRS Dur : 088 ms QT Int : 304 ms P-R-T Axes : 061 021 058 degrees QTc Int : 348 ms Poor data quality, interpretation may be adversely affected Sinus rhythm with occasional Premature ventricular complexes (interpolated PVC) Left atrial enlargement Abnormal ECG When compared with ECG of 29-SEP-2020 14:58, Premature ventricular complexes are now Present Confirmed by Mihir Rojas ([id number]) on 09/20/2022 3:48:07 PM Referred By: Confirmed By:Mihir Rojas
--- NOTE | 2022-09-20 15:52 | Electrocardiogram Report ---
Test Reason : Blood Pressure : / mmHG Vent. Rate : 089 BPM Atrial Rate : 089 BPM P-R Int : 128 ms QRS Dur : 086 ms QT Int : 338 ms P-R-T Axes : 060 018 038 degrees QTc Int : 411 ms Sinus rhythm with occasional Premature ventricular complexes Left atrial enlargement Borderline ECG When compared with ECG of 20-SEP-2022 13:04, No significant change Confirmed by Mihir Rojas ([id number]) on 09/20/2022 3:52:05 PM Referred By: REFERRED SELF Confirmed By:Mihir Rojas
--- NOTE | 2022-09-20 15:58 | History & Physical Report ---
Date of Service September 20, 2022 Assessment & Plan (1) Chest pain: (2) Rheumatoid arthritis: Plan This is a 67-year-old male with PMH of rheumatoid arthritis on methotrexate and prednisone and other medical problems listed below who presents with chest tightness that began overnight. Chest tightness Shortness of breath Elevated troponin Woke up with chest tightness and shortness of breath overnight, ? msk component although troponin elevated Risk factors for ACS include age and family history. Also with rheumatoid arthritis. No h/o cardiac workup previously Vital signs stable, O2 saturation 95% on room air, leukocytosis 12.5 K, D-dimer 1690, BNP 196 Initial high-sensitivity troponin 61.3 -> 57.4 -> repeat @ 2100 (if up-trending, will start IV heparin for NSTEMI) EKG x 2 performed in ED with sinus rhythm with PVCs, left atrial enlargement, no changes from previous CTA chest negative for PE however right lower extremity with edema - will doppler to eval for DVT Atypical presentation however troponin elevation-monitor on telemetry for arrhythmias, 2D echocardiogram, routine cardiac consultation, n.p.o. at midnight for possible stress test in a.m. Lipid panel, a1c, repeat ECG in AM Baby aspirin in AM Rheumatoid arthritis Follows with [facility] rheumatology in [place]. Due for methotrexate tomorrow, takes prednisone 5 mg daily DVT Ppx: SQ heparin Code status: FULL PCP: Kerri Dispo: Observation telemetry Patient seen in collaboration with Dr. Manning. Please see addendum. History of Present Illness Chief Complaint: Chest pain Primary Care Provider: Xavier Holly MD This is a 67-year-old male with PMH of rheumatoid arthritis on methotrexate and prednisone and other medical problems listed below who presents with chest tightness that began overnight. Patient took care of of an yesterday and thought that he might have picked her up the wrong way. Woke up during the night with chest tightness and shortness of breath that persisted into the morning, however he still felt well enough to care for this again. Denies any pain radiating to jaw or arms, no diaphoresis, nausea or presyncope. Denies any true pain or pressure described more of a substernal tightness. Was encouraged by friend to come in to ED for further evaluation. Tightness improved after administration of aspirin but is still present and less mild form. Tightness is exacerbated with movement and improves with rest. Denies any history of personal coronary artery disease but brother of an WA in his 50s. Denies any known history of diabetes, hypertension or hyperlipidemia. Is not a smoker. Denies any cardiac work-up in the past. No recent illness or sick contacts. No palpitations noted. No fever, chills, lightheadedness, headache, wheezing, nausea, vomiting, dumping, dysuria, diarrhea or constipation. Allergies Allergy/AdvReac Type Severity Reaction Status Date / Time No Known Allergies Allergy Verified 09/20/22 14:39 Home Medications Medication Instructions Recorded Confirmed Type betamethasone valerate 0.1 % 1 applic topical BID PRN Skin 06/10/13 09/20/22 History topical ointment Irritation ##0 cholecalciferol (vitamin D3) 25 1,000 unit PO QAM #0 tabs 06/10/13 09/20/22 History mcg (1,000 unit) capsule furosemide 20 mg tablet 20 mg PO DAILY PRN Edema #0 tabs 06/10/13 09/20/22 History methotrexate sodium 2.5 mg tablet 20 mg PO WK #0 tabs 06/10/13 09/20/22 History omeprazole 20 mg tablet,delayed 20 mg PO QAM #0 caps 06/10/13 09/20/22 History release prednisone 5 mg tablet 5 mg PO QAM 03/11/19 09/20/22 History 3-in-1 Commode #1 ea 10/19/20 09/20/22 Rx Viet Hose #1 ea 10/19/20 09/20/22 Rx folic acid 1 mg tablet 1 mg PO DAILY 09/20/22 09/20/22 History Past Med/Surg History Medical History (Updated 09/20/22 @ 17:26 by Tanya Calles PA-C) Cervical pain (neck) GERD (gastroesophageal reflux disease) Obesity Rheumatoid arthritis Surgical History History of colonoscopy History of esophagogastroduodenoscopy (EGD) History of right hip replacement (~10/2020) History of surgery on left wrist History of surgery on right wrist Hx of hand surgery left/ right x2 arthritis related Hx of inguinal hernia repair Hx of surgical procedure cyst removed from side of left knee Social History Smoking Status: Former smoker Second Hand Exposure: No; Hx Alcohol Use: No Hx Substance Use: Yes Substance Use Type Other:: marijuana use sporadic > not daily Preferred Language: Sinhala Communication Ability: Effective Sales Management Intern Required: No Beliefs That Will Affect Care: None marital status: Single Current Living Situation: Alone current occupational status: unemployed and disabled Feels Safe at Home: Yes Assistive Devices: Walker Review of Systems Review of Systems: At least ten systems reviewed and negative except as noted in the HPI. Physical Exam Physical Exam: General Appearance: WD/WN, vitals as above, NAD, sitting up in bed, pleasant, conversing easily Head: normocephalic, atraumatic Eyes: normal inspection, PERRL, conjunctivae normal, anicteric sclerae ENT: external ear and nose normal, oropharynx normal Neck: normal visual inspection, trachea midline, no thyromegaly Respiratory: diminished breath sounds bilaterally, lungs clear to auscultation, no wheeze, rales, rhonchi. No accessory muscle use Cardiovascular: regular rate, rhythm, no murmur, normal peripheral pulses. Vessels: no JVD Chest: normal inspection of chest Abdomen/GI: normal bowel sounds, soft, nontender, no hepatosplenomegaly Extremities/Musculoskeletal: no cyanosis or clubbing, extremities motor strength 5/5. RLE erythematous, 1+ pitting edema (chronic, per patient) Neurologic: PERRL, EOMI, accommodation nl, no face palsy, no dysarthria, CN's II-XI intact bilaterally and moves all extremities Psychiatric: A+Ox3, euthymic affect Skin: no rashes, normal color, warm/dry Results & Data Results & Data ([facility]) Vital Signs (Past 12 Hours) Vital Signs Temp Pulse Pulse Resp BP BP Pulse Ox 09/20/22 15:00 87 24 139/80 94 09/20/22 14:30 90 22 117/75 95 09/20/22 14:00 88 20 140/78 94 09/20/22 13:39 91 H 20 153/90 H 95 09/20/22 13:42 84 09/20/22 13:39 90 16 153/90 H 95 09/20/22 13:00 37.2 C 118 H 16 144/103 H 97 O2 Del Method 09/20/22 15:00 Room Air 09/20/22 14:30 Room Air 09/20/22 14:00 Room Air 09/20/22 13:39 Room Air 09/20/22 13:42 09/20/22 13:39 Room Air 09/20/22 13:00 Room Air Laboratory Results Short CBC 09/20/22 Range/Units 13:12 WBC 12.50 H (4.8-10.8) K/ul Hgb 15.5 (14.0-18.0) g/dl Hct 46.4 (42.0-52.0) % Plt Count 214 (130-400) K/uL BMP 09/20/22 13:12 Sodium 131 L Potassium 3.7 Chloride 97 L Carbon Dioxide 28 BUN 10 Creatinine 0.77 Glucose 159 H Calcium 8.9 Liver Function 09/20/22 Range/Units 13:12 Total Bilirubin 1.0 (0.2-1.0) mg/dl AST 16 (13-39) U/L ALT 9 (7-52) U/L Alkaline Phosphatase 80 (34-104) U/L Albumin 4.1 (3.4-5.0) gm/dl Diagnostic Findings Chest X-Ray 09/20/22 13:12 SINGLE VIEW CHEST CLINICAL HISTORY: Atypical chest pain FINDINGS: An AP, portable, upright chest radiograph is compared to study dated 09/29/2020. The examination is degraded by portable technique and apical lordotic positioning. The heart is enlarged. The pulmonary vasculature is noncongested. Chronic interstitial thickening is similar to previous. Scarring/atelectasis is noted at both lung bases. No airspace consolidation or large pleural effusion is identified. No pneumothorax is seen. The skeletal structures are osteopenic. The bony thorax is grossly intact. Advanced arthritic change is seen in the shoulders. IMPRESSION: Cardiomegaly with no acute cardiopulmonary abnormality identified. ACT 112: Negative or not required by law. Electronically signed by: Chinmay Langley M.D. 09/20/2022 1:51 PM Chest CTA 09/20/22 14:55 CT angio chest PE protocol CLINICAL HISTORY: chest pain; SOB; elevated dimer TECHNIQUE: Multidetector row helical CT of the chest was performed with angiographic protocol. Coronal and sagittal reformations were obtained. Coronal and sagittal MIPS were obtained from the axial data set and were submitted for review. Automated dose lowering techniques and/or adjustment according to patient size were utilized for this exam. CT DOSE: 954.20 mGy.cm Comparison: Comparison is made to chest radiograph 09/20/2022 FINDINGS: Lungs and pleura: Atelectasis versus scarring is seen in the dependent portions of the lungs. Heart and pericardium: Cardiomegaly is seen with biatrial enlargement. Vessels: Evaluation for pulmonary embolism is limited due to patient motion. No evidence of central, lobar, or segmental embolus. Mediastinum and sanjay: Unremarkable. Chest wall and lower neck: Unremarkable. Abdomen: Unremarkable. Bones: Degenerative changes in the thoracic spine. IMPRESSION: No pulmonary embolus is seen. ACT 112: Negative or not required by law. Electronically signed by: Lam Guerrier M.D. 09/20/2022 3:42 PM Code Status & VTE Plan VTE Prophylaxis Plan VTE Prophylaxis will be ordered: Yes Supervising Physician Co-Signing Physician Notes Patient seen and examined independently. Chart reviewed. Patient with substernal chest pain, mild troponin elevation. Patient with strong family history of WA (brother at 50 with massive WA). Will follow up repeat Trop at 9pm and start heparin drip if further elevation Continue aspirin 81mg daily. Start Metoprolol 12.5mg BID. Check lipid panel, A1c in morning
--- NOTE | 2022-09-20 20:31 | Ultrasound Report ---
Exam(s): US VENOUS RIGHT LOWER EXTREMITY EXAM: US Duplex Right Lower Extremity Veins CLINICAL HISTORY: Reason for exam: edematous. TECHNIQUE: Real-time duplex ultrasound scan of the right lower extremity veins integrating B-mode two-dimensional vascular structure, Doppler spectral analysis, color flow Doppler imaging and compression. COMPARISON: No relevant prior studies available. FINDINGS: Deep veins: Unremarkable. No DVT in the visualized common femoral, femoral, proximal deep femoral or popliteal veins. The veins demonstrate normal color flow, are normally compressible, with normal phasic flow and/or augmentation response. Superficial veins: Unremarkable. No thrombus in the visualized great saphenous vein. Soft tissues: Subcutaneous edema. No popliteal cyst. IMPRESSION: No acute findings in the right lower extremity veins. Electronically signed by: Cleveland Hodges MD 09/20/22 20:30 PM
[2022-09-20] MEDS ORDERED: ACETAMINOPHEN 325 MG TAB PO PRN (20:49)
[2022-09-20] MEDS ORDERED: ONDANSETRON INJ 2 MG/ML 2 ML VIAL IV PRN (20:49)
[2022-09-20] MEDS ORDERED: NITROGLYCERIN SL 0.4 MG/TAB TAB SL PRN (20:49)
[2022-09-20] MEDS ORDERED: POLYETHYLENE (MIRALAX) 17 GM PACK PO PRN (20:49)
[2022-09-20] MEDS: METOPROLOL TARTRATE 25 MG TAB PO SCH (21:53)
[2022-09-20] MEDS: HEPARIN SOD 5,000 UNIT/0.5 ML VIAL SQ SCH (21:53)
[2022-09-21 02:50] LABS: Hematocrit (blood only) 42.6 % (42.0-52.0); Hemoglobin 14.3 g/dl (14.0-18.0); Mean Corpuscular Hemoglobin 31.4 pg (25.0-34.0); Mean Corpuscular Hgb Conc 33.6 g/dL (32.0-36.0); Mean Corpuscular Volume 93.6 fL (80.0-100.0); Mean Platelet Volume 9.8 fL (9.4-12.4); Platelet Count 189 K/uL (130-400); RDW Coefficient of Variation 13.4 % (11.5-14.5); RDW Standard Deviation 45.6 fL (36.4-46.3); Red Blood Count 4.55 M/uL (4.70-6.10); White Blood Count 9.58 K/ul (4.8-10.8)
[2022-09-21 03:05] LABS: BUN Creatinine Ratio 12.2 (10-20); Calcium 8.9 mg/dl (8.5-10.1); Chol HDL Ratio 2.3 (0-5); Est GFR (African American) 92.1 ml/min; Est GFR (Non-African American) 79.5 ml/min; Potassium 3.9 mmol/L (3.5-5.1)
[2022-09-21] MEDS: HEPARIN SOD 5,000 UNIT/0.5 ML VIAL SQ SCH ×3 (05:28→21:06)
[2022-09-21 08:10] LABS: Estimated Average Glucose 108 mg/dl; Hemoglobin A1C 5.4 % (4.5-5.6)
[2022-09-21] MEDS ORDERED: metHOTREXate sodium 2.5 MG TAB PO SCH (09:00)
[2022-09-21] MEDS: predniSONE 5 MG TAB PO SCH (09:07)
[2022-09-21] MEDS: FOLIC ACID 1 MG TAB PO SCH (09:07)
[2022-09-21] MEDS: ASPIRIN 81 MG ECTAB PO SCH (09:08)
[2022-09-21] MEDS: PANTOprazole 40 MG TAB PO SCH (09:08)
--- NOTE | 2022-09-21 10:34 | Cardiology Consultation ---
Date of Consultation September 21, 2022 Assessment & Plan (1) Chest pain at rest: (2) Elevated troponin: (3) Abnormal EKG: (4) Pericardial effusion: (5) Rheumatoid arthritis: Plan 67-year-old male, with longstanding advanced rheumatoid arthritis, admitted with resting chest discomfort associated with shortness of breath that was worse with inspiration. Troponin minimally elevated. Personal review of the EKG's suggests very minimal ST elevation with personal review of the chest CT scan appearing to reveal a very small pericardial effusion. Overall, presentation appears more suggestive of a mild case of acute pericarditis than an acute coronary syndrome. Resting echocardiography pending. After review of the resting echocardiogram consideration will be made for a short tapering course of aspirin along with a 3-month course of low-dose colchicine continuing chronic PPI therapy for GI protection. At some point, stress testing should be performed given the patient's increased risk of coronary artery disease with patient requesting exercise stress echocardiography over pharmacological stress testing. Supervising Physician Co-Signing Physician Notes I have reviewed the advance practitioner documentation and agree. I saw and evaluated the patient on the date of service referenced in the note and have performed a medically appropriate history and or exam. I agree, the patient likely has pericarditis which can be related to his rheumatoid arthritis however, rheumatoid arthritis or systemic inflammation can also lead to coronary artery disease and although the high-sensitivity troponin elevation could be from pericarditis we cannot ignore the possibility that the patient has coronary artery disease. Therefore, I will review the echocardiogram when it is available to me but I think it is best that we proceed with a pharmacologic nuclear stress test in the morning. History of Present Illness Reason for Consultation: Chest pain Requesting Physician: Larisa Attending Physician: Mark History of Present Illness Mr. Daryl Rocha is a very pleasant 67-year-old male who is being seen today at the request of Dr. Peres, evaluation of chest discomfort. History notable for longstanding rheumatoid arthritis diagnosed as a teenager, on methotrexate and prednisone. Patient admitted to [facility] on September 20, 2022 after experiencing constant chest tightness that was associated with shortness of breath, beginning at rest the night before presentation and persisting into the morning. Symptoms seem to be worse with deep inspiration and when lying down. Notes babysitting a 1-1/2-year-old and wondering whether he moved or twisted the wrong way. Discomfort is not reproducible with palpation and is nonradiating. It does not seem to be aggravated by movement. Patient was encouraged by a neighbor to be evaluated. EKG on presentation was technically poor in quality, revealing sinus rhythm at 79 bpm with occasional premature ventricular complexes, left atrial enlargement, ? minimal ST elevation/repolarization in the inferior leads. A second EKG revealed sinus rhythm at 89 bpm with occasional premature ventricular complexes, left atrial enlargement, similar inferior ST elevation and ? very minimal anterolateral ST elevation. High-sensitivity troponin high was minimally elevated on presentation at 61.3 then 57.4, 35.1, now 25.0. Chest x-ray showed cardiomegaly with no acute cardiopulmonary abnormality. CT scan of the chest was negative for pulmonary emboli. Per my evaluation, there is cardiomegaly, biatrial enlargement, and a small pericardial effusion. Venous duplex was negative for DVT in the right lower extremity, patient chronically with right lower extremity swelling/lymphedema. This morning, patient feels quite a bit better. Aspirin seemed to help. He is now chest pain-free. He is able to take a deep breath without issue. Prior prior to this event, patient was without exertional chest pain. Notes walking to [employer] weekly without exertional discomfort or dyspnea. Patient denies prior history of coronary artery disease, HI, CHF, arrhythmia, heart murmur, rheumatic fever, or scarlet fever. No history of hypertension, dyslipidemia, or diabetes. Non-smoker. Patient does have a family history of premature coronary artery disease in his brother who had an HI at the age of 50. Social History: Remote smoker. No alcohol. No illegal drug use. 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 Family History: Brother with an HI at 50. Mother is alive without cardiac issues. Father's history is unknown. Sister is alive and well without cardiac issues. Allergies Allergy/AdvReac Type Severity Reaction Status Date / Time No Known Allergies Allergy Verified 09/20/22 14:39 Home Medications Medication Instructions Recorded Confirmed Type betamethasone valerate 0.1 % 1 applic topical BID PRN Skin 06/10/13 09/20/22 History topical ointment Irritation ##0 cholecalciferol (vitamin D3) 25 1,000 unit PO QAM #0 tabs 06/10/13 09/20/22 History mcg (1,000 unit) capsule furosemide 20 mg tablet 20 mg PO DAILY PRN Edema #0 tabs 06/10/13 09/20/22 History methotrexate sodium 2.5 mg tablet 20 mg PO WK #0 tabs 06/10/13 09/20/22 History omeprazole 20 mg tablet,delayed 20 mg PO QAM #0 caps 06/10/13 09/20/22 History release prednisone 5 mg tablet 5 mg PO QAM 03/11/19 09/20/22 History 3-in-1 Commode #1 ea 10/19/20 09/20/22 Rx Viet Hose #1 ea 10/19/20 09/20/22 Rx folic acid 1 mg tablet 1 mg PO DAILY 09/20/22 09/20/22 History Patient History Medical History Cervical pain (neck) GERD (gastroesophageal reflux disease) Obesity Rheumatoid arthritis Surgical History History of colonoscopy History of esophagogastroduodenoscopy (EGD) History of right hip replacement (~10/2020) History of surgery on left wrist History of surgery on right wrist Hx of hand surgery left/ right x2 arthritis related Hx of inguinal hernia repair Hx of surgical procedure cyst removed from side of left knee Social History Smoking Status: Never smoker Second Hand Exposure: No; Hx Alcohol Use: No Hx Substance Use: No Preferred Language: Mohawk Communication Ability: Effective Clerk Guide Required: No Beliefs That Will Affect Care: None marital status: Single Current Living Situation: Alone current occupational status: unemployed and disabled Other Information That Helps Us Care for You: No Feels Safe at Home: Yes Safety Concerns: Feels Safe At This Time Assistive Devices: Walker and Wheelchair Review of Systems Review of Systems: Complete review of systems is otherwise as stated above, negative, or noncontributory. Physical Exam Physical Exam: General: A&Ox3. NAD. HENT: Normocephalic. Atraumatic. Eyes: PER. Conjunctiva pink, sclera clear. Neck: No carotid bruits. No JVD. Heart: RRR. No murmur. No rub. PMI is nondisplaced. Lungs: Clear to auscultation. Abdomen: +BS. Soft. Nontender. No masses or organomegaly. Extremities: Distal right lower extremity edema, lymphedema, and mild erythema without overt cellulitis. No clubbing. No cyanosis. There are significant findings typically associated with advanced rheumatoid arthritis of the hands and wrists. Limited neurological examination is without focal deficits. Pulses: radial=2/4, posterior tibial=1/4. Results & Data ([facility]) Vital Signs (Past 12 Hours) Vital Signs Temp Pulse Pulse Resp BP Pulse Ox O2 Del Method 09/21/22 07:53 64 09/21/22 07:43 36.7 C 66 20 118/75 96 Room Air 09/21/22 03:00 37.1 C 74 18 138/74 97 Room Air 09/21/22 00:22 81 09/20/22 22:54 36.8 C 72 20 130/73 93 Room Air Laboratory Results Cardiac Enzymes 09/20/22 09/20/22 09/20/22 Range/Units 13:12 15:08 15:28 AST 16 (13-39) U/L Troponin I High Sens 61.3 H* 57.4 H* (0-20) pg/ml B-Natriuretic Peptide 196 H (0-100) pg/ml 09/20/22 09/21/22 Range/Units 20:46 02:27 AST (13-39) U/L Troponin I High Sens 35.1 H D 25.0 H D (0-20) pg/ml B-Natriuretic Peptide (0-100) pg/ml Coagulation 09/20/22 09/20/22 Range/Units 13:12 15:28 PT 11.2 (9.0-12.0) Seconds B-Natriuretic Peptide 196 H (0-100) pg/ml Lipids 09/21/22 Range/Units 02:27 Triglycerides 63 (0-150) mg/dl Cholesterol 110 (0-200) mg/dl HDL Cholesterol 48 mg/dl Cholesterol/HDL Ratio 2.3 (0-5) CBC 09/20/22 09/21/22 Range/Units 13:12 02:27 WBC 12.50 H 9.58 (4.8-10.8) K/ul RBC 4.90 4.55 L (4.70-6.10) M/uL Hgb 15.5 14.3 (14.0-18.0) g/dl Hct 46.4 42.6 (42.0-52.0) % Plt Count 214 189 (130-400) K/uL Neut # (Auto) 10.20 H (1.40-6.50) K/uL Lymph # (Auto) 0.96 L (1.2-3.4) K/uL [place] # (Auto) 1.24 H (0.11-0.59) K/uL Eos # (Auto) 0.02 (0-0.50) K/uL Baso # (Auto) 0.03 (0-0.2) K/uL Comprehensive Metabolic Panel 09/20/22 09/21/22 Range/Units 13:12 02:27 Sodium 131 L 134 L (136-145) mmol/L Potassium 3.7 3.9 (3.5-5.1) mmol/L Chloride 97 L 99 (98-107) mmol/L Carbon Dioxide 28 32 (21-32) mmol/L BUN 10 12 (6-23) mg/dl Creatinine 0.77 0.98 (0.6-1.4) mg/dl Glucose 159 H 87 (70-99(Fasting)) mg/dl Calcium 8.9 8.9 (8.5-10.1) mg/dl AST 16 (13-39) U/L ALT 9 (7-52) U/L Alkaline Phosphatase 80 (34-104) U/L Total Protein 7.4 (6.0-8.3) gm/dl Albumin 4.1 (3.4-5.0) gm/dl Intake and Output 09/20/22 09/21/22 09/21/22 22:59 06:59 14:59 Output Total 100 / 500 400 / 500 Balance -100 / -500 -400 / -500 Output: Urine 100 / 500 400 / 500 Other: Other Intake Source NPO W/SIPS Weight 105.6 kg 105.6 kg Weight Measurement Method Standing Scale Diagnostic Findings Continuous telemetry monitoring reveals sinus rhythm with heart rates in the 60s to 80s.
[2022-09-21] MEDS: METOPROLOL TARTRATE 25 MG TAB PO SCH ×2 (12:45→21:05)
--- NOTE | 2022-09-21 18:06 | Hospitalist Progress Note ---
Date of Service September 21, 2022 Assessment & Plan (1) Chest pain: (2) Rheumatoid arthritis: Plan This is a 67-year-old male with PMH of rheumatoid arthritis on methotrexate and prednisone and other medical problems listed below who presents with chest tightness associated with SOB Chest tightness Elevated troponin Need to r/o ACS Risk factors for ACS include age and family history. Also with rheumatoid arthr Troponin on admission mildly elevated at 61, then trending down to 25 Echo showed left ventricular systolic function is normal with ejection fraction 55 to 60%, no wall motion abnormality noted CTA chest showed no evidence of PE Cardiology on board that recommended pharmacologic nuclear stress test in the morning. Currently patient denies any chest pain Continue monitor closely in telemetry continue aspirin and metoprolol home dose We will make him n.p.o. after midnight Rheumatoid arthritis Follows with [facility] rheumatology in [place]. Continue prednisone 5 mg daily DVT Ppx: SQ heparin Code status: FULL Disposition we will discharge when medically stable Admission and Anticipated Discharge Date Admission Date: September 20, 2022 Subjective Pt was seen and examined for follow of chest pain Lying in bed with no cute distress Pt said that he feels ok He said that chest pain resolved Denies any chest pain, palpitation, dizziness and SOB Review of Systems Review of Systems: All systems reviewed & are unremarkable except as noted in Subjective Physical Exam Physical Exam: General- No acute distress Head- atraumatic Eyes- PERRL, EOMI, ENT- oropharynx clear Neck- supple, no JVD Lungs- clear to auscultation Heart- regular rhythm; no murmur Abdomen- normal bowel sounds, soft, nontender Extremities- no calf tenderness, +RLE edema Neuro- alert, oriented x 3; PERRL, EOMI; no facial palsy; no dysarthria Skin- warm & dry Results & Data Results & Data ([facility]) Vital Signs (Past 12 Hours) Vital Signs Temp Pulse Pulse Resp BP Pulse Ox O2 Del Method 09/21/22 15:48 36.6 C 63 18 134/85 94 Room Air 09/21/22 15:00 60 09/21/22 11:44 36.7 C 67 18 148/79 H 95 Room Air 09/21/22 07:53 64 09/21/22 07:43 36.7 C 66 20 118/75 96 Room Air
[2022-09-22] MEDS ORDERED: METOPROLOL TARTRATE 1 MG/ML VIAL IV STA ×2 (00:44→02:48)
[2022-09-22] MEDS ORDERED: MAGNESIUM SULFATE / D5W 1 GM/100 ML BAG IV ONE ×2 (00:45→01:20)
[2022-09-22] MEDS ORDERED: POTASSIUM CHLORIDE CRTAB 20 MEQ TABCR PO STA (00:45)
[2022-09-22] MEDS ORDERED: LACTATED RINGER'S 1,000 ML IV ONE (00:46)
[2022-09-22 01:11] LABS: Magnesium 1.6 mg/dl (1.7-2.4)
--- NOTE | 2022-09-22 01:19 | Communication Note ---
Date of Service: September 22, 2022 Patient noted to be tachycardic as per RN. Heart rate 130s, possible atrial flutter on the monitor as per RN. SBP 150s. Patient asymptomatic as per RN. EKG as per my interpretation : Rate 120, A-fib, normal axis, T wave abnormalities inferior leads AP New onset A-fib IV Lopressor 1 dose now Titrate beta-raghavendra Rx supplement electrolytes
[2022-09-22] MEDS ORDERED: dilTIAZem HCl 5 MG/ML 5 ML VIAL IV STA ×2 (01:20→06:08)
[2022-09-22] MEDS: METOPROLOL TARTRATE 25 MG TAB PO SCH ×2 (01:39→08:12)
[2022-09-22] MEDS: HEPARIN SOD 5,000 UNIT/0.5 ML VIAL SQ SCH (06:00)
[2022-09-22 06:46] LABS: Basophils # (auto) 0.03 K/uL (0-0.2); Basophils % (auto) 0.3 %; Eosinophils # (auto) 0.44 K/uL (0-0.50); Eosinophils % (auto) 4.1 %; Hematocrit (blood only) 47.8 % (42.0-52.0); Immature Granulocytes # (auto) 0.04 K/uL (0.01-0.20); Immature Granulocytes % (auto) 0.4 %; Lymphocytes # (auto) 1.58 K/uL (1.2-3.4); Lymphocytes % (auto) 14.7 %; Mean Corpuscular Hemoglobin 31.3 pg (25.0-34.0); Mean Corpuscular Hgb Conc 33.5 g/dL (32.0-36.0); Mean Corpuscular Volume 93.5 fL (80.0-100.0); Mean Platelet Volume 10.1 fL (9.4-12.4); Monocytes # (auto) 0.86 K/uL (0.11-0.59); Neutrophils # (auto) 7.79 K/uL (1.40-6.50); Neutrophils % (auto) 72.5 %; Platelet Count 224 K/uL (130-400); RDW Coefficient of Variation 13.2 % (11.5-14.5); RDW Standard Deviation 45.1 fL (36.4-46.3); Red Blood Count 5.11 M/uL (4.70-6.10); White Blood Count 10.74 K/ul (4.8-10.8)
[2022-09-22 07:05] LABS: BUN Creatinine Ratio 18.3 (10-20); Creatinine Clr Calc Pharmacy 105.7 ml/min; Est GFR (African American) 106.1 ml/min; Est GFR (Non-African American) 91.5 ml/min; Magnesium 2.2 mg/dl (1.7-2.4); Potassium 4.1 mmol/L (3.5-5.1)
[2022-09-22] MEDS ORDERED: REGADENOSON 0.4 MG/5 ML SYR IV ONE (07:09)
[2022-09-22 07:13] LABS: Partial Thromboplastin Ratio 1.1
--- NOTE | 2022-09-22 08:48 | Cardiology Progress Note ---
Date of Service September 22, 2022 Assessment & Plan (1) Chest pain at rest: (2) Pericarditis: (3) PAF (paroxysmal atrial fibrillation): (4) Elevated troponin: (5) Rheumatoid arthritis: Plan Chest pain at rest, exacerbated by inspiration. EKG with [place] changes and minimal ST elevation (resolved). + Mildly elevated troponin. Suspect acute pericarditis. Given resolution of symptoms, chronic prednisone therapy, and concurrent issues, recommend low dose colchicine without loading dose x 3 months and low dose ASA. Paroxysmal atrial fibrillation. [id number] Score 2 points. Risks and benefits of anticoagulation discussed. At present, the risks of anticoagulation appear to be greater than the benefit. Continue metoprolol tartrate 25 mg twice a day which represents a new medication this admission. Recommend outpatient Zio monitor to assess for ongoing PAF after resolution of the acute pericarditis, initiating anticoagulation if ongoing PAF observed at that point. Consider outpatient evaluation for obstructive sleep apnea. Chest pain. + Risk factors including longstanding rheumatoid arthritis. Elevated troponin. Patient unable to ambulate for exercise stress testing. Proceed with Lexiscan nuclear stress testing. Admission and Anticipated Discharge Date Admission Date: September 20, 2022 Supervising Physician Co-Signing Physician Notes I have reviewed the advance practitioner documentation and agree. I saw and evaluated the patient on the date of service referenced in the note and have performed a medically appropriate history and or exam. The patient had a negative pharmacologic nuclear stress test today. I agree that the risk versus benefit of anticoagulation would favor at this time aspirin only. Agree with a ZIO monitor as an outpatient. Subjective Patient seen and examined. Chart, medications, and telemetry reviewed. Awoke by nurse around midnight due to newly observed atrial fibrillation with a rapid ventricular response. Patient asymptomatic initially, then aware of mild tachypalpitations. No chest tightness or dyspnea. Patient given IV metoprolol, supplemental potassium and magnesium. Oral metoprolol tartrate 25 mg twice a day prescribed. He did not take metoprolol prior to arrival. Patient status post spontaneous conversion back to sinus rhythm around 8 AM, without conversion pause. No chest tightness or discomfort. No inspiratory pain or dyspnea. No cough, orthopnea, PND, or increased edema. No dizziness, near syncope, fevers, chills, hemoptysis, melena, hematochezia, or hematuria. No history of internal bleeding. Telemetry: Currently since at 60 bpm. PAF from midnight to around 8 AM, without conversion pause. Occasional PVC. September 21, 2022 TTE Interpretation Summary ([facility], Dr. Cameron): Normal size LV. Normal LV systolic function. EF 55-60%. Normal RV size and function. Normal LA and RA size. No pericardial effusion, pericardium appearing normal. No significant valvular pathology. Review of Systems Review of Systems: Complete review of systems is otherwise as stated above, negative, or noncontributory. Physical Exam Physical Exam: General: A&Ox3. NAD. HENT: Normocephalic. Atraumatic. Eyes: PER. Conjunctiva pink, sclera clear. Neck: No carotid bruits. No JVD. Heart: RRR. No murmur. No rub. PMI is nondisplaced. Lungs: Clear to auscultation. Abdomen: +BS. Soft. Nontender. No masses or organomegaly. Extremities: Distal right lower extremity edema, lymphedema, and mild erythema without overt cellulitis. No clubbing. No cyanosis. There are significant findings typically associated with advanced rheumatoid arthritis of the hands and wrists. Limited neurological examination is without focal deficits. Pulses: radial=2/4, posterior tibial=1/4. Results & Data ([facility]) Vital Signs (Past 12 Hours) Vital Signs Temp Pulse Pulse Resp BP BP Pulse Ox 09/22/22 07:21 109 H 09/22/22 07:10 36.8 C 84 16 137/96 95 09/22/22 06:08 112/79 09/22/22 01:20 135 H 137/83 09/22/22 02:54 116 H 141/97 H 09/22/22 02:40 36.7 C 115 H 18 141/97 H 95 09/22/22 00:51 134 H 151/97 H 09/22/22 00:44 124 H 151/97 H 09/21/22 23:20 62 09/21/22 23:16 36.6 C 57 L 16 132/88 98 O2 Del Method 09/22/22 07:21 09/22/22 07:10 Room Air 09/22/22 06:08 09/22/22 01:20 09/22/22 02:54 09/22/22 02:40 Room Air 09/22/22 00:51 09/22/22 00:44 09/21/22 23:20 09/21/22 23:16 Room Air Laboratory Results Coagulation 09/22/22 Range/Units 05:47 APTT 30.0 (21.0-31.0) Seconds CBC 09/22/22 Range/Units 05:47 WBC 10.74 (4.8-10.8) K/ul RBC 5.11 (4.70-6.10) M/uL Hgb 16.0 (14.0-18.0) g/dl Hct 47.8 (42.0-52.0) % Plt Count 224 (130-400) K/uL Neut # (Auto) 7.79 H (1.40-6.50) K/uL Lymph # (Auto) 1.58 (1.2-3.4) K/uL [place] # (Auto) 0.86 H (0.11-0.59) K/uL Eos # (Auto) 0.44 (0-0.50) K/uL Baso # (Auto) 0.03 (0-0.2) K/uL Comprehensive Metabolic Panel 09/22/22 Range/Units 06:06 Sodium 136 (136-145) mmol/L Potassium 4.1 (3.5-5.1) mmol/L Chloride 102 (98-107) mmol/L Carbon Dioxide 28 (21-32) mmol/L BUN 15 (6-23) mg/dl Creatinine 0.82 (0.6-1.4) mg/dl Glucose 115 H (70-99(Fasting)) mg/dl Calcium 9.0 (8.5-10.1) mg/dl Intake and Output 09/21/22 09/22/22 09/22/22 22:59 06:59 14:59 Intake Total 240 / 640 400 / 640 Output Total 1750 / 1750 Balance 240 / -1110 -1350 / -1110 Intake: IV 200 / 200 Magnesium Sulfate / D5w 1 gm In 200 / 200 100 ml @ 50 mls/hr IV ONE ONE Rx#:[id number] Oral 240 / 440 200 / 440 Output: Urine 1750 / 1750 Other: # Unmeasured Voids 1 Weight 104.3 kg Weight Measurement Method Built in [facility]
[2022-09-22] MEDS ORDERED: CHOLECALCIFEROL 1,000 UNITS 25 MCG TAB PO SCH (09:00)
[2022-09-22] MEDS ORDERED: COLCHICINE 0.6 MG TAB PO SCH (09:45)
[2022-09-22] MEDS: predniSONE 5 MG TAB PO SCH (10:30)
[2022-09-22] MEDS: ASPIRIN 81 MG ECTAB PO SCH (10:30)
[2022-09-22] MEDS: PANTOprazole 40 MG TAB PO SCH (10:30)
[2022-09-22] MEDS: FOLIC ACID 1 MG TAB PO SCH (10:30)
--- NOTE | 2022-09-22 10:58 | Myocardial Perfusion Study ---
Date of Service September 22, 2022 Myocardial Perfusion Study [facility] Myocardial Perfusion Study Report The patient received 10.2 mCi of intravenous tech 99 M sestamibi followed by resting SPECT study. The patient then underwent a Lexiscan protocol followed by additional 32.4 mCi of intravenous tech 99 M sestamibi followed by a repeat SPECT study. When comparing the rest to stress sestamibi scans there is normal perfusion throughout the myocardium. Gated analysis reveals normal LV function with an estimated left ventricular ejection fraction of around 53%. The patient had no symptoms during or following stress. The baseline EKG was normal and there were no EKG changes with stress. The patient was returned to his room in stable condition. Summary: Negative pharmacologic nuclear stress test for ischemia. Normal LV function with an estimated left ventricular ejection fraction 53%.
--- NOTE | 2022-09-22 12:22 | Electrocardiogram Report ---
Test Reason : Blood Pressure : / mmHG Vent. Rate : 120 BPM Atrial Rate : 166 BPM P-R Int : 000 ms QRS Dur : 088 ms QT Int : 326 ms P-R-T Axes : 000 017 -05 degrees QTc Int : 460 ms Atrial fibrillation with rapid ventricular response Abnormal ECG When compared with ECG of 20-SEP-2022 14:34, Atrial fibrillation has replaced Sinus rhythm HR has increased by 31 bpm Confirmed by Mihir Rojas ([id number]) on 09/22/2022 12:21:57 PM Referred By: REFERRED SELF Confirmed By:Mihir Rojas
--- NOTE | 2022-09-22 12:30 | Electrocardiogram Report ---
Test Reason : Blood Pressure : / mmHG Vent. Rate : 061 BPM Atrial Rate : 061 BPM P-R Int : 126 ms QRS Dur : 088 ms QT Int : 390 ms P-R-T Axes : 062 018 027 degrees QTc Int : 392 ms Normal sinus rhythm Left atrial enlargement Borderline ECG When compared with ECG of 22-SEP-2022 00:46, Sinus rhythm has replaced Atrial fibrillation Vent. rate has decreased BY 59 BPM Confirmed by Mihir Rojas ([id number]) on 09/22/2022 12:29:56 PM Referred By: REFERRED SELF Confirmed By:Mihir Rojas
--- NOTE | 2022-09-22 15:09 | Discharge Summary ---
Date of Service September 22, 2022 Admission HPI Per Admitting Provider This is a 67-year-old male with PMH of rheumatoid arthritis on methotrexate and prednisone and other medical problems listed below who presents with chest tightness that began overnight. Patient took care of of an yesterday and thought that he might have picked her up the wrong way. Woke up during the night with chest tightness and shortness of breath that persisted into the morning, however he still felt well enough to care for this infant again. Denies any pain radiating to jaw or arms, no diaphoresis, nausea or presyncope. Denies any true pain or pressure described more of a substernal tightness. Was encouraged by friend to come in to ED for further evaluation. Tightness improved after administration of aspirin but is still present and less mild form. Tightness is exacerbated with movement and improves with rest. Denies any history of personal coronary artery disease but brother of an ND in his 50s. Denies any known history of diabetes, hypertension or hyperlipidemia. Is not a smoker. Denies any cardiac work-up in the past. No recent illness or sick contacts. No palpitations noted. No fever, chills, lightheadedness, headache, wheezing, nausea, vomiting, dumping, dysuria, diarrhea or constipation. Admission Exam Per Admitting Provider General Appearance:WD/WN, vitals as above, NAD, sitting up in bed, pleasant, conversing easily Head: normocephalic, atraumatic Eyes:normal inspection, PERRL, conjunctivae normal, anicteric sclerae ENT: external ear and nose normal, oropharynx normal Neck: normal visual inspection, trachea midline, no thyromegaly Respiratory:diminished breath sounds bilaterally, lungs clear to auscultation, no wheeze, rales, rhonchi. No accessory muscle use Cardiovascular: regular rate, rhythm, no murmur, normal peripheral pulses. Vessels: no JVD Chest: normal inspection of chest Abdomen/GI: normal bowel sounds, soft, nontender, no hepatosplenomegaly Extremities/Musculoskeletal: no cyanosis or clubbing, extremities motor strength 5/5. RLE erythematous, 1+ pitting edema (chronic, per patient) Neurologic: PERRL, EOMI, accommodation nl, no face palsy, no dysarthria, CN's II-XI intact bilaterally and moves all extremities Psychiatric:A+Ox3, euthymic affect Skin: no rashes, normal color, warm/dry Principal Diagnosis Chest tightness Elevated troponin Rheumatoid arthritis Pericarditis: PAF (paroxysmal atrial fibrillation) Discharge Exam General- No acute distress Head- atraumatic Eyes- PERRL, EOMI, ENT- oropharynx clear Neck- supple, no JVD Lungs- clear to auscultation Heart- regular rhythm; no murmur Abdomen- normal bowel sounds, soft, nontender Extremities- no calf tenderness, +RLE edema Neuro- alert, oriented x 3; PERRL, EOMI; no facial palsy; no dysarthria Skin- warm & dry Discharge Data Allergies Allergy/AdvReac Type Severity Reaction Status Date / Time No Known Allergies Allergy Verified 09/20/22 14:39 Consultations 09/20/22 15:33 ED Decision to Admit Stat 09/20/22 16:46 Consult Cardiology Routine Ordered Studies 09/20/22 14:55 CT angio chest PE protocol Stat 09/20/22 16:42 US venous doppler LE RT Urgent Laboratory Results WBC 10.74 K/ul (4.8-10.8) 09/22/22 05:47 RBC 5.11 M/uL (4.70-6.10) 09/22/22 05:47 Hgb 16.0 g/dl (14.0-18.0) 09/22/22 05:47 Hct 47.8 % (42.0-52.0) 09/22/22 05:47 MCV 93.5 fL (80.0-100.0) 09/22/22 05:47 MCH 31.3 pg (25.0-34.0) 09/22/22 05:47 MCHC 33.5 g/dL (32.0-36.0) 09/22/22 05:47 RDW Std Deviation 45.1 fL (36.4-46.3) 09/22/22 05:47 RDW Coeff of Christy 13.2 % (11.5-14.5) 09/22/22 05:47 Plt Count 224 K/uL (130-400) 09/22/22 05:47 MPV 10.1 fL (9.4-12.4) 09/22/22 05:47 Immature Gran % (Auto) 0.4 % 09/22/22 05:47 Neut % (Auto) 72.5 % 09/22/22 05:47 Lymph % (Auto) 14.7 % 09/22/22 05:47 [place] % (Auto) 8.0 % 09/22/22 05:47 Eos % (Auto) 4.1 % 09/22/22 05:47 Baso % (Auto) 0.3 % 09/22/22 05:47 Neut # (Auto) 7.79 K/uL (1.40-6.50) H 09/22/22 05:47 Lymph # (Auto) 1.58 K/uL (1.2-3.4) 09/22/22 05:47 [place] # (Auto) 0.86 K/uL (0.11-0.59) H 09/22/22 05:47 Eos # (Auto) 0.44 K/uL (0-0.50) 09/22/22 05:47 Baso # (Auto) 0.03 K/uL (0-0.2) 09/22/22 05:47 Immature Gran # (Auto) 0.04 K/uL (0.01-0.20) 09/22/22 05:47 PT 11.2 Seconds (9.0-12.0) 09/20/22 13:12 INR 1.1 (0.9-1.1) 09/20/22 13:12 APTT 30.0 Seconds (21.0-31.0) 09/22/22 05:47 PTT Ratio 1.1 09/22/22 05:47 D-Dimer 1690 ug/L FEU (0-500) H* 09/20/22 13:12 Sodium 136 mmol/L (136-145) 09/22/22 06:06 Potassium 4.1 mmol/L (3.5-5.1) 09/22/22 06:06 Chloride 102 mmol/L (98-107) 09/22/22 06:06 Carbon Dioxide 28 mmol/L (21-32) 09/22/22 06:06 Anion Gap 6 (3-11) 09/22/22 06:06 BUN 15 mg/dl (6-23) 09/22/22 06:06 Creatinine 0.82 mg/dl (0.6-1.4) 09/22/22 06:06 Est Cr Clr Drug Dosing 105.7 ml/min 09/22/22 06:06 Est GFR ( Amer) 106.1 ml/min 09/22/22 06:06 Est GFR (Non-Af Amer) 91.5 ml/min 09/22/22 06:06 BUN/Creatinine Ratio 18.3 (10-20) 09/22/22 06:06 Glucose 115 mg/dl (70-99(Fasting)) H 09/22/22 06:06 Estimat Average Glucose 108 mg/dl 09/21/22 02:27 Hemoglobin A1c 5.4 % (4.5-5.6) 09/21/22 02:27 Calcium 9.0 mg/dl (8.5-10.1) 09/22/22 06:06 Magnesium 2.2 mg/dl (1.7-2.4) 09/22/22 06:06 Total Bilirubin 1.0 mg/dl (0.2-1.0) 09/20/22 13:12 AST 16 U/L (13-39) 09/20/22 13:12 ALT 9 U/L (7-52) 09/20/22 13:12 Alkaline Phosphatase 80 U/L (34-104) 09/20/22 13:12 Troponin I High Sens 25.0 pg/ml (0-20) H D 09/21/22 02:27 B-Natriuretic Peptide 196 pg/ml (0-100) H 09/20/22 15:28 Total Protein 7.4 gm/dl (6.0-8.3) 09/20/22 13:12 Albumin 4.1 gm/dl (3.4-5.0) 09/20/22 13:12 Globulin 3.3 gm/dl (2.5-4.0) 09/20/22 13:12 Albumin/Globulin Ratio 1.2 (0.9-2) 09/20/22 13:12 Triglycerides 63 mg/dl (0-150) 09/21/22 02:27 Cholesterol 110 mg/dl (0-200) 09/21/22 02:27 LDL Cholesterol, Calc 49 mg/dl 09/21/22 02:27 VLDL Cholesterol, Calc 13 mg/dl (0-30) 09/21/22 02:27 HDL Cholesterol 48 mg/dl 09/21/22 02:27 Cholesterol/HDL Ratio 2.3 (0-5) 09/21/22 02:27 Lipase 24 U/L (11-82) 09/20/22 13:12 TSH 2.705 uIu/ml (0.300-4.500) 09/21/22 13:29 SARS-CoV-2, RNA, NAAT NEGATIVE (NEGATIVE) 09/20/22 16:01 Impressions Chest X-Ray 09/20/22 13:12 SINGLE VIEW CHEST CLINICAL HISTORY: Atypical chest pain FINDINGS: An AP, portable, upright chest radiograph is compared to study dated 09/29/2020. The examination is degraded by portable technique and apical lordotic positioning. The heart is enlarged. The pulmonary vasculature is noncongested. Chronic interstitial thickening is similar to previous. Scarring/atelectasis is noted at both lung bases. No airspace consolidation or large pleural effusion is identified. No pneumothorax is seen. The skeletal structures are osteopenic. The bony thorax is grossly intact. Advanced arthritic change is seen in the shoulders. IMPRESSION: Cardiomegaly with no acute cardiopulmonary abnormality identified. ACT 112: Negative or not required by law. Electronically signed by: Chinmay Langley M.D. 09/20/2022 1:51 PM Chest CTA 09/20/22 14:55 CT angio chest PE protocol CLINICAL HISTORY: chest pain; SOB; elevated dimer TECHNIQUE: Multidetector row helical CT of the chest was performed with angiogra the medical center protocol. Coronal and sagittal reformations were obtained. Coronal and sagittal MIPS were obtained from the axial data set and were submitted for review. Automated dose lowering techniques and/or adjustment according to patient size were utilized for this exam. CT DOSE: 954.20 mGy.cm Comparison: Comparison is made to chest radiograph 09/20/2022 FINDINGS: Lungs and pleura: Atelectasis versus scarring is seen in the dependent portions of the lungs. Heart and pericardium: Cardiomegaly is seen with biatrial enlargement. Vessels: Evaluation for pulmonary embolism is limited due to patient motion. No evidence of central, lobar, or segmental embolus. Mediastinum and sanjay: Unremarkable. Chest wall and lower neck: Unremarkable. Abdomen: Unremarkable. Bones: Degenerative changes in the thoracic spine. IMPRESSION: No pulmonary embolus is seen. ACT 112: Negative or not required by law. Electronically signed by: Lam Guerrier M.D. 09/20/2022 3:42 PM Venous Doppler Study 09/20/22 16:42 Exam(s): US VENOUS RIGHT LOWER EXTREMITY EXAM: US Duplex Right Lower Extremity Veins CLINICAL HISTORY: Reason for exam: edematous. TECHNIQUE: Real-time duplex ultrasound scan of the right lower extremity veins integrating B-mode two-dimensional vascular structure, Doppler spectral analysis, color flow Doppler imaging and compression. COMPARISON: No relevant prior studies available. FINDINGS: Deep veins: Unremarkable. No DVT in the visualized common femoral, femoral, proximal deep femoral or popliteal veins. The veins demonstrate normal color flow, are normally compressible, with normal phasic flow and/or augmentation response. Superficial veins: Unremarkable. No thrombus in the visualized great saphenous vein. Soft tissues: Subcutaneous edema. No popliteal cyst. IMPRESSION: No acute findings in the right lower extremity veins. Electronically signed by: Cleveland Hodges MD 09/20/22 20:30 PM Hospital Course (1) Chest pain: (2) Rheumatoid arthritis: Plan This is a 67-year-old male with PMH of rheumatoid arthritis on methotrexate and prednisone and other medical problems listed below who presents with chest tightness associated with SOB Chest tightness Elevated troponin Pericarditis Need to r/o ACS Risk factors for ACS include age and family history. Also with rheumatoid arthr Troponin on admission mildly elevated at 61, then trending down to 25 Echo showed left ventricular systolic function is normal with ejection fraction 55 to 60%, no wall motion abnormality noted CTA chest showed no evidence of PE Cardiology on board Negative pharmacologic nuclear stress test this morning. Currently patient denies any chest pain cardiology recommended low dose colchicine x 3 months and low dose of aspirin Ok from cardiology standpoint to discharge home Paroxysmal Atrial fibrillation Pt went to [facility] last night Received IV Cardizem and IV Lopressor then converted to NSR this morning [id number] Score 2 points. Risks and benefits of anticoagulation discussed. At present, the risks of anticoagulation appear to be greater than the benefit. Cardio recommended to continue metoprolol tartrate 25 mg twice a day which represents a new medication this admission. Recommend outpatient Zio monitor to assess for ongoing PAF after resolution of the acute pericarditis, initiating anticoagulation if ongoing PAF observed at that point. Continue aspirin 81 mg daily Consider outpatient evaluation for obstructive sleep apnea. Rheumatoid arthritis Follows with [facility] rheumatology in [place]. Continue prednisone 5 mg daily DVT Ppx: SQ heparin Code status: FULL Disposition Discharge home today Total Time Total Time Spent Total Time Spent (In Minutes): 35 minutes Discharge Plan Discharge Items Patient Disposition: Home - Self-Care Reason For Visit: CHEST TIGHTNESS,SOB Discharge Diagnosis: Chest tightness Elevated troponin Pericarditis Paroxysmal Atrial fibrillation Rheumatoid arthritis Activity: Resume your previous activity Non-emergency contact: Primary Care Provider and Sidewalk Inspector Call non-emergency contact if: you have any medication questions Follow-up/Referrals: Xavier Holly MD [Primary Care Provider] - (Date & Time 09/28/2022 2:00 PM Provider Xavier Holly III, MD Department [facility] ) Diet: Heart Healthy Addtl Attending Provider Instructions: Follow up with your primary care provider 09/28/2022 @ 2:00 PM Xavier Holly III, MD Department [facility] Follow up [facility] cardiology ( office will call for the appointment) Your provider or cardiology will arrange for outpatient Zio monitor to assess for ongoing PAF after resolution of the acute pericarditis Continue Colchicine 0.6mg daily for 3 months Seek medical attention if you develop any shortness of breath, palpitation or chest pain Pending Studies at Discharge: No Stand-Alone Forms: My [facility], Smoking Cessation Medications and DC Order Prescriptions: New aspirin 81 mg Tablet,Delayed Release (Dr/Ec) 81 mg PO DAILY 30 Days Qty: 30 0RF metoprolol tartrate 25 mg Tablet 25 mg PO BID 30 Days Qty: 60 0RF colchicine [Colcrys] 0.6 mg Tablet 0.6 mg PO QAM 30 Days Qty: 30 0RF Continued betamethasone valerate 0.1 % Ointment 1 applic topical BID PRN (Reason: Skin Irritation) Qty: 0 methotrexate sodium 2.5 mg Tablet 20 mg PO WK Qty: 0 Rx Instructions: pt takes on wednesdays furosemide 20 mg Tablet 20 mg PO DAILY PRN (Reason: Edema) Qty: 0 cholecalciferol (vitamin D3) 1,000 unit Capsule 1,000 unit PO QAM Qty: 0 omeprazole 20 mg Tablet,Delayed Release (Dr/Ec) 20 mg PO QAM Qty: 0 Rx Instructions: to take before breakfast (DME) 3-in-1 Commode Misc See Rx Instructions .MEDSUPPLY Qty: 1 0RF Rx Instructions: As directed (DME) [facility] Zel[facility] [place] See Rx Instructions .MEDSUPPLY Qty: 1 0RF Rx Instructions: As directed prednisone 5 mg Tablet 5 mg PO QAM folic acid 1 mg Tablet 1 mg PO DAILY Discharge Orders: Discharge Order (Routine); Ordered 09/22/22 Ordered By: Eloise Flores Admission Data Admit Date/Time: 09/20/22 15:56 Attending Provider: Eloise Flores Admit Provider: Jeanine Manning Primary Care Provider: Xavier Holly Other Providers: Gamaliel Cameron ; Jeanine Manning
== END 2022-09-22 17:30 | disposition home or self-care (01) ==
LOC: 2S 12:56 → ED 12:56 → SUATTDRO 15:56 → 2S 19:31
DX: R07.89 Other chest pain; Z20.822 Contact with and (suspected) exposure to COVID-19; I48.0 Paroxysmal atrial fibrillation; Z82.49 Family history of ischemic heart disease and other diseases of the circulatory system; Z79.899 Other long term (current) drug therapy; M06.9 Rheumatoid arthritis, unspecified; Z87.891 Personal history of nicotine dependence; I31.9 Disease of pericardium, unspecified; R77.8 Other specified abnormalities of plasma proteins; R06.02 Shortness of breath; Z79.52 Long term (current) use of systemic steroids

== ENCOUNTER 2023-01-16 07:55 | Observation (INO) ==
--- NOTE | 2022-12-20 11:45 | PAT Medication Instructions ---
Medication Instructions Date of Service December 20, 2022 Home Medications Medication Instructions Recorded 3-in-1 Commode #1 ea 10/19/20 Viet Zelaya #1 ea 10/19/20 betamethasone valerate 0.1 % topical ointment 1 applic topical BID PRN cholecalciferol (vitamin D3) 25 mcg (1,000 unit) capsule 1,000 unit PO QAM furosemide 20 mg tablet 20 mg PO DAILY PRN methotrexate sodium 2.5 mg tablet 20 mg PO WK omeprazole 20 mg tablet,delayed release 20 mg PO QAM prednisone 5 mg tablet 5 mg PO QAM folic acid 1 mg tablet 1 mg PO QAM apixaban 5 mg tablet (Eliquis) 5 mg PO BID colchicine 0.6 mg tablet 0.6 mg PO QAM metoprolol succinate 50 mg tablet,extended release 24 hr 50 mg PO QAM STOP 7 days before surgery methotrexate sodium 2.5 mg tablet 20 mg PO WK ASK your surgeon for instructions colchicine 0.6 mg tablet 0.6 mg PO QAM ASK your prescriber and surgeon apixaban 5 mg tablet (Eliquis) 5 mg PO BID(in order for spinal or epidural anesthesia, Eliquis needs to be stopped 72 hours/3 days before surgery. Please check if okay with doctor that prescribes this to you) STOP taking 24 hours before surgery betamethasone valerate 0.1 % topical ointment 1 applic topical BID PRN DO NOT take the morning of surgery cholecalciferol (vitamin D3) 25 mcg (1,000 unit) capsule 1,000 unit PO QAM furosemide 20 mg tablet 20 mg PO DAILY PRN folic acid 1 mg tablet 1 mg PO QAM Take morning of surgery With a small sip of water, OTHERWISE NOTHING TO EAT OR DRINK AFTER MIDNIGHT: omeprazole 20 mg tablet,delayed release 20 mg PO QAM prednisone 5 mg tablet 5 mg PO QAM metoprolol succinate 50 mg tablet,extended release 24 hr 50 mg PO QAM Other Notes If you have any questions please call us at [phone] or [phone] or [phone] or [phone]
--- NOTE | 2022-12-27 11:14 | Anesthesiology Consultation ---
Date of Service December 27, 2022 Assessment & Plan (1) Encounter for pre-operative examination: Chart Review Chart Review: Acceptable Risk for Surgery (pending [facility] cardio clearance ) and Patient seen in Pre Admission Testing - Due to recent pericarditis and relatively new onset a fib- patient needs cardio clearance prior to procedure- did speak with [facility] cardio group- their office will be reaching out to patient to set up appt- please fax cardio opt imization form and PAT EKG- will await cardio clearance - Due to PMH- patient is NOT an ideal OPJ candidate (currently scheduled as 23 hour obs) Per PAT appt on 12/27/22, patient denies any recent travel or large group activities. Pt is NOT vaccinated for Covid. Will leave to surgeon's discretion if preop Covid testing needed. Educated on importance of using Covid precautions one week prior to surgery Last seen by cardio 10/03/22= seen for hospital follow up. Admitted for chest discomfort and diagnosed with pericarditis and paroxysmal atrial fibrillation. Prescribed colchicine. Currently wearing a ZIO monitor for further assessment. Anticoagulation prescribed at this time. Feeling well since discharge. Chest discomfort resolved approximately 24 hours of hospitalization without recurrence.Recommend continue colchicine for 3 months. Also discussed isolated episode of paroxysmal atrial fibrillation during hospitalization in the setting of possible reversible causes (pericarditis). Sinus rhythm on EKG today without recurrent palpitations. We will place new ZIO monitor for 10 days. Transition metoprolol to once daily. Continue low-dose aspirin. Follow-up in 4 months. Teaching & Discussion Pre-Anesthesia Teaching/Discussion Notes: Instructed NPO after midnight before surgery,except medications with 15 cc of water. Medication instructions provided according to the PAT guidelines. History Surgery Operation Date: 01/16/23 12:45 Proposed Procedures p Left Lateral Total Hip Arthroplasty - Reginaldo Hayes DO Height/Weight Height: 5 ft 8 in Weight: 94.4 kg Allergies Allergy/AdvReac Type Severity Reaction Status Date / Time No Known Allergies Allergy Verified 12/15/22 15:35 Medications Home Medications Medication Instructions Recorded Confirmed Last Taken betamethasone valerate 0.1 % 1 applic topical BID PRN Skin 06/10/13 12/15/22 09/19/22 topical ointment Irritation ##0 cholecalciferol (vitamin D3) 25 1,000 unit PO QAM #0 tabs 06/10/13 12/15/22 09/19/22 mcg (1,000 unit) capsule furosemide 20 mg tablet 20 mg PO DAILY PRN Edema #0 tabs 06/10/13 12/15/22 10/15/20 08:00 methotrexate sodium 2.5 mg tablet 20 mg PO WK #0 tabs 06/10/13 12/15/22 09/14/22 omeprazole 20 mg tablet,delayed 20 mg PO QAM #0 caps 06/10/13 12/15/22 09/20/22 release prednisone 5 mg tablet 5 mg PO QAM 03/11/19 12/15/22 09/20/22 3-in-1 Commode #1 ea 10/19/20 09/20/22 Unknown Viet Hose #1 ea 10/19/20 09/20/22 Unknown folic acid 1 mg tablet 1 mg PO QAM 09/20/22 12/15/22 09/20/22 apixaban 5 mg tablet (Eliquis) 5 mg PO BID 12/15/22 12/15/22 Unknown colchicine 0.6 mg tablet 0.6 mg PO QAM 12/15/22 12/15/22 Unknown metoprolol succinate 50 mg 50 mg PO QAM 12/15/22 12/15/22 Unknown tablet,extended release 24 hr Past Medical History Medical History (Updated 12/28/22 @ 08:40 by Soraida Calabrese PA-C) Cervical pain (neck) GERD (gastroesophageal reflux disease) Well controlled and stable History of recent hospitalization 09/2022 [facility] with CP. Admitted for pericarditis and episode of a fib per records Denies cardiac cath. "Suspect acute pericarditis." per cardio note. Chest pain resolved Obesity PAF (paroxysmal atrial fibrillation) Dxed 09/2022- follows with [facility] Cardiology- on Eliquis Rheumatoid arthritis Follows with Dr. Benedicto Gonzalez ([facility]) Occ flares Significant contractures to bilateral hands Exercise / Class Metabolic Activity II 4-5 Yardwork/Stairs/Walk up hill (no chest pain or SOB- no chest pain or SOB ) Past Surgical History Surgical History History of colonoscopy History of esophagogastroduodenoscopy (EGD) History of hernia surgery History of right hip replacement (~10/2020) History of surgery on left wrist History of surgery on right wrist Hx of hand surgery left/ right x2 arthritis related Hx of inguinal hernia repair Hx of surgical procedure cyst removed from side of left knee Past Anesthesia History No Hx of Anesthesia Complications and No Family Hx of Anesthesia Complications History of PONV No Hx of PONV and No Hx of Motion Sickness Social History Smoking Status: Former smoker Do You Dip or Chew Tobacco: No Smoking End Date: as a teen Hx Alcohol Use: No Hx Substance Use: Yes substance use type: marijuana Substance Use Type Other:: marijuana use sporadic > not daily Last Used Substance: Unknown Review of Systems Snoring unknown- sleeps alone Patient denies chest pain, shortness of breath, dyspnea on exertion, cough, wheezing, palpitations. No hx of seizures, stroke, SD. No hx of blood clots or blood transfusions Physical Exam Vital Signs VITALS BP 137/66 P 68 TEMP 98.0 SP02 97% RESP 16 Constitutional no acute distress ENMT Mouth: + small oral opening; no TMJ clicking Thyromental Distance: > or= 3.5 Finger Breadths (3.5) Mallampati Class: III Neck + limited neck extension (significant ) Respiratory normal respiratory effort; no respiratory distress Auscultation: lungs clear to auscultation bilaterally; no wheezes Cardiovascular Rate/Rhythm: regular rate and regular rhythm Heart Sounds: no murmur Vessels: no carotid bruit Musculoskeletal Spine: no pain with cervical ROM Extremities: extremities normal to inspection Hands with flexion contractions Psychiatric Orientation: alert Lab Results Anesthesia Preop Results Results Anesthesia Widget: Na 133 mmol/L (136-145) L 12/27/22 K 4.0 mmol/L (3.5-5.1) 12/27/22 Cl 100 mmol/L (98-107) 12/27/22 CO2 25 mmol/L (21-32) 12/27/22 BUN 23 mg/dl (6-23) 12/27/22 Creat 0.80 mg/dl (0.6-1.4) 12/27/22 Glucose Level 109 mg/dl (70-99(Fasting)) H 12/27/22 PT 12.0 Seconds (9.0-12.0) 12/27/22 PTT 31.8 Seconds (21.0-31.0) H 12/27/22 INR 1.1 (0.9-1.1) 12/27/22 Blood Type A Positive 12/27/22 Antibody Screen NEGATIVE 12/27/22 Testing Laboratory Results 12/15/22= WBC: 9.91 H/H: 13.1/41.1 PLATELETS: 337 Electrocardiogram Date: 12/27/22 Findings: + NSR @ (63bpm ) Left atrial enlargement Chest X-Ray Date: 09/20/22 FINDINGS: An AP, portable, upright chest radiograph is compared to study dated 09/29/2020. The examination is degraded by portable technique and apical lordotic positioning. The heart is enlarged. The pulmonary vasculature is noncongested. Chronic interstitial thickening is similar to previous. Scarring/atelectasis is noted at both lung bases. No airspace consolidation or large pleural effusion is identified. No pneumothorax is seen. The skeletal structures are osteopenic. The bony thorax is grossly intact. Advanced arthritic change is seen in the shoulders. IMPRESSION: Cardiomegaly with no acute cardiopulmonary abnormality identified. Echocardiogram Date: 09/21/22 EF: 55-60% LV Function: normal RWMA: + none RV systolic function was normal Left and right atrial size is normal No pericardial effusion. Pericardium appears normal. No significant perivalvular pathology Stress Test Date: 09/22/22 Type: nuclear Summary: Negative pharmacologic nuclear stress test for ischemia. Normal LV function with an estimated left ventricular ejection fraction 53%. Cervical Spine Date: 12/27/22 FINDINGS: Alignment of the cervical spine is anatomic. There is no evidence for instability during flexion or extension. Severe multilevel facet arthrosis is noted. There is mild multilevel disc space narrowing. Degenerative changes at the C1-C2 articulation are again noted. No acute fracture within the cervical spine. IMPRESSION: 1. No evidence for cervical spine instability during flexion or extension. 2. Multilevel degenerative changes, as above. No fracture. Other Testing Event monitor 10/03/2022 = minimum HR 36 bpm, maximum HR 196 bpm, and average heart rate of 74 bpm. Predominant underlying rhythm was sinus rhythm. Atrial fibrillation occurred (7% burden), ranging from 89-196 bpm (average of 142 bpm). Isolated SVE's were rare, SVE couplets were rare, SVE triplets were rare. Isolated VE's were rare, VE couplets were rare, and VE triplets were rare. Ventricular trigeminy was present. No symptoms were reported. Chest CTA 09/20/22= No pulmonary embolus is seen. Lungs and pleura: Atelectasis versus scarring is seen in the dependent portions of the lungs. Heart and pericardium: Cardiomegaly is seen with biatrial enlargement. COVID-19 Risk Screen Screening Information COVID-19 Screen Date: 12/27/22 Exposure 21 Days Family/Household +COVID Last 21 Days: No Exposure 10 Days Any COVID Exposure Last 10 Days: No Symptoms Last 10 Days Experienced COVID Sx Last 10 Days: No + COVID 0-90 Days COVID + in Last 0-90 Days: No Risk Plan COVID Risk Plan: No Risk Identified Patient Education COVID Preop Screening Education Complete: Yes
[~2023-01-16 07:55] MED LIST changes: -BUPIVACAINE 0.5 % 5 MG/1 ML PF 10ML VIAL ONE; +LR 15ML/HR IV SCH; -LR 500ML BOLUS, THEN 15ML/HR IV SCH; +ORTHO JOINT MIX INFIL SCH; +ROPIVACAINE 0.5% 5 MG/ML 30 ML VIAL ONE; -ROPIVACAINE 0.5% HCL/PF 150 MG, BUPIVACAINE 0.75% MPF 20 ML, EPINEPHrine 30MG/30ML (OR ... INSTIL SCH; +ceFAZolin 2000MG 2,000 MG/15 ML SYR IV SCH
[2023-01-16] MEDS ORDERED: BUPIVACAINE 0.5 % 5 MG/1 ML PF 10ML VIAL ONE (09:07)
[2023-01-16] MEDS ORDERED: KETAMINE 50 MG/5 ML SYRINGE ONE (09:10)
[2023-01-16] MEDS ORDERED: MIDAZOLAM HCL 1 MG/ML 2ML VIAL ONE (09:10)
[2023-01-16] MEDS ORDERED: LIDOCAINE 2% 2 ML VIAL/AMP(20MG/ML) INFIL ONE (09:14)
[2023-01-16] MEDS ORDERED: GLYCOPYRROLATE 0.2 MG/ML VIAL ONE (09:14)
[2023-01-16] MEDS ORDERED: ONDANSETRON INJ 2 MG/ML 2 ML VIAL ONE (09:14)
[2023-01-16] MEDS ORDERED: PROPOFOL IV EMULSION 10 MG/ML 20 ML VIAL IV ONE (09:14)
--- NOTE | 2023-01-16 10:06 | History & Physical Bridge Note ---
Date of Service January 16, 2023 History & Physical Bridge Note I have examined the patient, reviewed the History & Physical and in the interval since the performance of the History & Physical I have noted the following changes of clinical significance: no changes noted
[2023-01-16] MEDS ORDERED: ePHEDrine sulfate 50 MG/ML AMP IV PRN (10:16)
[2023-01-16] MEDS ORDERED: HYDROmorphone INJ 2 MG/ML SYR/VIAL IV PRN (10:16)
[2023-01-16] MEDS ORDERED: ATROPINE SULFATE 0.1 MG/ML 10ML SYR IV PRN (10:16)
[2023-01-16] MEDS ORDERED: ONDANSETRON INJ 2 MG/ML 2 ML VIAL IV PRN ×2 (10:16→15:30)
[2023-01-16] MEDS ORDERED: ORTHO JOINT ANESTHETIC ONE (11:11)
[2023-01-16] MEDS ORDERED: HYDROCORTISONE SOD SUCCINATE 100 MG/2 ML VIAL ONE (12:44)
[2023-01-16] MEDS ORDERED: ePHEDrine sulfate 50 MG/ML SYR ONE (12:44)
--- NOTE | 2023-01-16 13:16 | XRay Report ---
XR hip LT 1V CLINICAL HISTORY: Left hip arthroplasty. LEFT HIP IN OR DR. BENITEZ COMPARISON STUDY: None. FINDINGS: Single intraoperative image of the left hip was submitted for review. There is a left total hip arthroplasty. The hardware appears intact. No fracture or dislocation within the left hip. No ad ditional radiopaque foreign bodies identified within the left hip. IMPRESSION: Left total hip arthroplasty. No acute fractures. ACT 112: Negative or not required by law. Electronically signed by: Raymond Reddy M.D. 01/16/2023 1:15 PM
--- NOTE | 2023-01-16 13:19 | Operative Report ---
PG Post Operative Report Pre & Post Diagnosis Operation Date: 01/16/23 10:10 Pre-Op Diagnosis: Osteoarthritis of left hip Post-Op Diagnosis: Osteoarthritis of left hip I identified the patient and participated in the time-out.: Yes Procedure Operation Date: 01/16/23 10:10 Actual Procedures p Left Lateral Total Hip Arthroplasty(Left) - Reginaldo Hayes DO Surgeon Reginaldo Hayes DO Pr Manager Reginaldo Whatley PA-C Estimated Blood Loss 200 Findings Consistent with Post-Op Diagnosis Specimens Left femoral head Description of Procedure On January 16, 2023 Daryl arrived at [facility] for the above procedure. He was seen in the preoperative holding area and the operative extremity identified and signed. He was given a preoperative antibiotic and a spinal anesthetic. He was taken back to the operating room and laid on the table in supine position. He was given basic sedation. He was put in the lateral decubitus position. The left hip was prepped and draped in sterile fashion. A timeout was done. The patient and the operative extremity was properly identified. A lateral approach was used. Dissection was taken down through the fascia. The IT band was split. The anterior third of the abductors were tenotomized off the greater trochanter. The capsule was excised. The femoral head was then dislocated. The femoral neck was then resected and the head was removed. The acetabulum was exposed. Time was spent doing a complete circumferential capsule labral release. Sequential reaming up to a size 53 reamer was done. A 54 mm G7 acetabular shell was then impacted into place. A single 25 mm screw was placed. A 40 mm liner was snapped into place. The surrounding soft tissues were then injected with 100 cc of an orthopedic pain control cocktail. The proximal femur was then exposed. Sequential broaching up to a size 4 broach was done. I high offset neck and a 40 mm head with a +0 neck was snapped into place. The hip was then reduced. The hip was brought through a full range of motion and felt to be stable. A single flatplate x-ray was taken to ensure appropriate alignment of the components. The hip was then dislocated. The broach was removed. The final size 4 high offset [employer] stem was then impacted into place. A size 40 ceramic head with a 0 neck was then impacted onto the stem. The hip was reduced. The hip was brought through full range of motion and felt to be stable. The wound was then irrigated. The abductors were then tenodesed back to the greater trochanter with transosseous FiberWire sutures and side to side sutures. The IT band was closed with #1 Vicryl. Skin was closed with 2-0 Vicryl and fortunato. He was then placed in a soft dressing. He was then transferred to a hospital bed. He was taken to the postanesthesia care unit in stable condition. He tolerated the procedure well. Reginaldo Whatley PA-C, was present for the entire procedure. He was critical for patient positioning, prepping, draping, retraction exposure, wound closure and application of sterile dressing. I attest to the content of the Intraoperative Record and any orders documented therein. Any exceptions are noted below.
--- NOTE | 2023-01-16 14:06 | Anesthesiology Progress Note ---
Date of Service January 16, 2023 Anesthesia Post Procedure Vital Signs Vital Signs: Temp Pulse Pulse Resp BP Pulse Ox O2 Del Method 01/16/23 13:55 60 20 99/53 L 100 Oxymask 01/16/23 13:45 69 20 95/52 L 100 Oxymask 01/16/23 13:35 68 16 103/59 L 98 Oxymask 01/16/23 13:23 36.5 C 65 14 103/58 L 98 Oxymask 01/16/23 08:33 37.5 C 70 20 128/71 96 Room Air O2 Flow Rate 01/16/23 13:55 4 01/16/23 13:45 4 01/16/23 13:35 6 01/16/23 13:23 10 01/16/23 08:33 Pain Intensity Bilateral Leg: Pain Intensity: 6 Transfer of Care Handoff Completed per policy Notes Mental Status: alert / awake / arousable and participated in evaluation Nausea / Vomiting: adequately controlled Pain: adequately controlled Airway Patency, RR, SpO2: stable & adequate BP & HR: stable & adequate Hydration State: stable & adequate Neuraxial Anesthesia: was administered and sensory block is resolving Anesthetic Complications: no major complications apparent and Pt Satisfied with anesthetic care
--- NOTE | 2023-01-16 14:23 | XRay Report ---
XR hip 1V LT w pelvis CLINICAL HISTORY: Postoperative evaluation. COMPARISON: Pelvis and hip radiographs November 22, 2022. FINDINGS: Alignment of the total left hip arthroplasty is anatomic. There is no periprosthetic fract ure or unexpected radiopaque foreign body. Skin fortunato are present. Right hip arthroplasty is unchan ged in appearance. IMPRESSION: Expected findings following total left hip arthroplasty. ACT 112: Negative or not required by law. Electronically signed by: Alvin Vargas M.D. 01/16/2023 2:21 PM
[2023-01-16] MEDS ORDERED: FUROSEMIDE 20 MG TAB PO PRN (15:30)
[2023-01-16] MEDS ORDERED: MAGNESIUM HYDROXIDE SUSP 30 ML UDC PO PRN (15:30)
[2023-01-16] MEDS ORDERED: HYDROmorphone INJ 0.5 MG/0.5 ML SYR IV PRN (15:30)
[2023-01-16] MEDS ORDERED: METOCLOPRAMIDE HCL INJ 5 MG/ML 2 ML VIAL IV PRN (15:30)
[2023-01-16] MEDS ORDERED: bisacodyL 10 MG SUPP PR PRN (15:30)
[2023-01-16] MEDS ORDERED: oxyCODONE HCL IR 5 MG TAB (IMMEDIATE RELEASE) PO PRN (15:30)
[2023-01-16] MEDS ORDERED: NALOXONE HCL 0.4 MG/1 ML VIAL/CARP IV PRN (15:30)
[2023-01-16] MEDS: SODIUM CHLORIDE 0.9% 1000ML 1,000 ML IV SCH (16:18)
[2023-01-16] MEDS: KETOROLAC TROMETHAMINE 15 MG/ML VIAL IV SCH ×2 (16:19→21:39)
[2023-01-16] MEDS: ACETAMINOPHEN 500 MG TAB PO SCH ×2 (16:19→21:39)
[2023-01-16] MEDS: ceFAZolin 2000MG 2,000 MG/15 ML SYR IV SCH (19:39)
[2023-01-16] MEDS: SENNA 8.6 MG TAB PO SCH (19:40)
[2023-01-16] MEDS: DOCUSATE SODIUM 100 MG CAP PO SCH (19:41)
[2023-01-17] MEDS: ceFAZolin 2000MG 2,000 MG/15 ML SYR IV SCH (02:44)
[2023-01-17] MEDS: ACETAMINOPHEN 500 MG TAB PO SCH ×3 (05:37→21:21)
[2023-01-17] MEDS: KETOROLAC TROMETHAMINE 15 MG/ML VIAL IV SCH ×4 (05:37→21:21)
[2023-01-17] MEDS: SODIUM CHLORIDE 0.9% 1000ML 1,000 ML IV SCH (06:12)
[2023-01-17] MEDS ORDERED: dexAMETHasone 4 MG TAB PO SCH (08:00)
[2023-01-17] MEDS: COLCHICINE 0.6 MG TAB PO SCH (08:15)
[2023-01-17] MEDS: PANTOprazole 40 MG TAB PO SCH (08:15)
[2023-01-17] MEDS: FOLIC ACID 1 MG TAB PO SCH (08:15)
[2023-01-17] MEDS: METOPROLOL SUCC 50MG EXT REL TAB PO SCH (08:15)
[2023-01-17] MEDS: APIXABAN 5 MG TABLET PO SCH ×3 (08:15→19:48)
[2023-01-17] MEDS: DOCUSATE SODIUM 100 MG CAP PO SCH ×2 (08:16→19:49)
[2023-01-17] MEDS: predniSONE 5 MG TAB PO SCH (08:16)
[2023-01-17] MEDS: MULTIVITAMIN TAB PO SCH (08:16)
--- NOTE | 2023-01-17 08:30 | Orthopedic Progress Note ---
Date of Service January 17, 2023 Assessment & Plan (1) Status post left hip replacement: Overall he is doing very well. He is not having much pain in the left hip. He will be seen by physical therapy today for ambulation and range of motion exercises. He is on Eliquis for DVT prophylaxis. We will keep him in the hospital today for therapy and pain control. He does live alone. We will discharge him to home tomorrow. iXao Brito was seen and examined at bedside this morning. Overall is doing very well. Is not having much pain in the left hip. He has been standing on his leg but he has not been ambulating yet. He has no complaints.. Review of Systems All systems reviewed & are unremarkable except as noted in HPI & below. Physical Exam On physical examination of left hip, the dressing is clean and dry. His leg is out full extension. He has active dorsiflexion plantarflexion of the left ankle.. Results & Data Results & Data Laboratory Results . Diagnostic Findings Postoperative x-rays of the left hip show the prosthesis to be in anatomic alignment without any evidence of fracture, screws, or loosening.. PG Care Time/CCT Total # of Minutes Spent Total Time Spent with Patient: Total time spent is greater than 50% in coordination of care (as documented) at patient's floor/unit and/or counseling patient: Coding Level of Care Code 50017 Post Operative Follow-Up Diagnoses Status post left hip replacement Z96.642
[2023-01-17] MEDS: SENNA 8.6 MG TAB PO SCH (19:49)
[2023-01-18] MEDS: KETOROLAC TROMETHAMINE 15 MG/ML VIAL IV SCH ×2 (05:08→10:00)
[2023-01-18] MEDS: ACETAMINOPHEN 500 MG TAB PO SCH (05:08)
--- NOTE | 2023-01-18 07:52 | Orthopedic Progress Note ---
Date of Service January 18, 2023 Assessment & Plan (1) Status post left hip replacement: Overall he is doing very well. He is not having much pain in the left hip. He will be seen by physical therapy today for ambulation and range of motion exercises. He is on Eliquis for DVT prophylaxis. He can be discharged home later today. He will follow-up with orthopedics in 2 weeks. Xiao Brito was seen and examined at bedside this morning.. Overall he is doing very well. He is not having too much pain in the left hip. He participated well with physical therapy yesterday. He has been up and ambulating. He has no complaints. Review of Systems All systems reviewed & are unremarkable except as noted in HPI & below. Physical Exam On physical examination of left hip, the dressing is clean and dry. His leg lengths are equal. He has active dorsiflexion plantarflexion of his left ankle.. Results & Data Results & Data Laboratory Results . Diagnostic Findings . PG Care Time/CCT Total # of Minutes Spent Total Time Spent with Patient: Total time spent is greater than 50% in coordination of care (as documented) at patient's floor/unit and/or counseling patient: Coding Level of Care Code 57713 Post Operative Follow-Up Diagnoses Status post left hip replacement Z96.642
--- NOTE | 2023-01-18 07:53 | Discharge Summary ---
Date of Service January 18, 2023 Principal Diagnosis Same as "Discharge Diagnosis" noted below under Discharge Instructions. Discharge Exam On physical examination of left hip, the dressing is clean and dry. His leg lengths are equal. He has active dorsiflexion plantarflexion of his left ankle.. Discharge Data Procedures Performed Operation Date: 01/16/23 10:10 Actual Procedures p Left Lateral Total Hip Arthroplasty(Left) - Reginaldo Hayes DO Hospital Course (1) Status post left hip replacement: On January 16, 2023 Daryl arrived at [facility] and underwent a left hip replacement without complication. He had a spinal anesthetic. Postoperatively he was started on Eliquis for DVT prophylaxis and transferred to the general orthopedic floors. His hospital course was uneventful. On postop day #1, his vital signs were stable and his pain was well controlled. He was able to participate well with physical therapy doing ambulation and range of motion exercises. On postop day #2, he continued to do well. He participated once again with physical therapy. He was then discharged home. He will follow- up with orthopedics in 2 weeks. PG Care Time/CCT Total # of Minutes Spent Total Time Spent with Patient: Total time spent is greater than 50% in coordination of care (as documented) at patient's floor/unit and/or counseling patient: Discharge Plan Discharge Items Patient Disposition: Home - Home Health Services Reason For Visit: Left Hip Degenerative Joint Disease Discharge Diagnosis: Left hip replacement Activity: Per Instructions section Non-emergency contact: Surgeon Call non-emergency contact if: your wound has increased redness and your wound has increased drainage Follow-up/Referrals: Xavier Holly MD [Primary Care Provider] - Diet: Regular Addtl Attending Provider Instructions: Activity and Therapy Recommendations: * If you are using [facility] then therapy will be provided at your home until they feel you have accomplished all of your goals. * If you are using [facility] then Physical Therapy will be provided until they feel you are ready to start Outpatient Physical Therapy. * If you are not using home therapy then Outpatient Physical Therapy should start about 3-5 days from your day of surgery. Therapy will last about 6-10 weeks * You were shown a series of exercises in the hospital. Do these exercises three times each day including the exercises you were shown in physical therapy. * Get up and walk several times each day.~ For the first four weeks, try not to stand or walk for more than one hour at a time. If you do stand or walk for more than one hour, you will not hurt anything, but your leg will likely swell.~~ * As you feel comfortable, you may change from the walker or crutches to a cane and~then to independent walking. Medications: * Narcotic You will likely be sent home from the hospital with a prescription for the narcotic pain medication that worked best throughout your stay. * Eliquis - continue taking your Eliquis as prescribed. * Other medications may be prescribed for specific circumstances. If you have any questions, please call the office at . * Resume previous home medications unless otherwise instructed TEDs/Elastic Stockings: The white elastic stockings help limit swelling and prevent blood clots from forming in your legs. The more you wear them, the more they work. Wear them for six weeks. Dressing Care: Leave the Silverlon dressing in place for 7 days. After 7 days you may remove the dressing. If the incision is not draining then you may leave the fortunato open to air. If there is a little bit of drainage or if the fortunato are getting stuck on your clothing then cover the incision with a dry dressing. The fortunato will be removed at your 2 week follow-up appointment. Showering: You may shower with the Silverlon dressing in place. Do not let the shower spray hit the dressing directly. Pat the Silverlon dressing dry. If the dressing becomes wet underneath, then simply remove the dressing. Keep the incision dry until you are 7 days out from the day of surgery. After 7 days you may remove the Silverlon dressing and shower with the fortunato exposed. Let soapy water run over the fortunato and pat them dry. Do not scrub or soak the incision. Things To Watch For: * Drainage from the incision site that occurs more than one week after your surgery. * Increased redness at the incision site. * Fever above 102 degrees Fahrenheit. * Unusual chest pain or shortness of breath. * Call [facility] at with any of the above problems Follow-Up Visit: Follow-up with Dr. Hayes's PA (Reginaldo Whatley) 2-3 weeks after your day of surgery. He will remove your fortunato and answer any questions. If you have any additional questions or concerns, Dr Hayes is usually in the office at the same time and will be available An appointment was probably scheduled when you signed-up for surgery in the office. If you have any questions call Office Instructions: More detailed instructions as well as Frequently Asked Questions were provided in a folder by our office when you signed-up for surgery. Please review these instructions when you get home. If you have any further questions or concerns, please feel free to call the office at [phone] Pending Studies at Discharge: No Stand-Alone Forms: [facility] Medications and DC Order Prescriptions: New oxycodone-acetaminophen 5-325 mg tablet 1 tab PO Q6H PRN (Reason: pain) Qty: 30 0RF Continued betamethasone valerate 0.1 % Ointment 1 applic topical BID PRN (Reason: Skin Irritation) Qty: 0 methotrexate sodium 2.5 mg Tablet 20 mg PO WK Qty: 0 Rx Instructions: pt takes on wednesdays furosemide 20 mg Tablet 20 mg PO DAILY PRN (Reason: Edema) Qty: 0 cholecalciferol (vitamin D3) 1,000 unit Capsule 1,000 unit PO QAM Qty: 0 Patient Comments: Patient has not taken in over 2 weeks omeprazole 20 mg Tablet,Delayed Release (Dr/Ec) 20 mg PO QAM Qty: 0 Rx Instructions: to take before breakfast (DME) 3-in-1 [facility] See Rx Instructions .MEDSUPPLY Qty: 1 0RF Rx Instructions: As directed (DME) Viet Zelaya [facility] [place] See Rx Instructions .MEDSUPPLY Qty: 1 0RF Rx Instructions: As directed prednisone 5 mg Tablet 5 mg PO QAM folic acid 1 mg Tablet 1 mg PO QAM metoprolol succinate 50 mg Tablet Extended Release 24 Hr 50 mg PO QAM colchicine 0.6 mg Tablet 0.6 mg PO QAM Eliquis 5 mg Tablet 5 mg PO BID Admission Data Admit Date/Time: 01/16/23 13:29 Attending Provider: Reginaldo Hayes Admit Provider: Reginaldo Hayes Primary Care Provider: Xavier Holly Other Providers: [facility]
[2023-01-18] MEDS: DOCUSATE SODIUM 100 MG CAP PO SCH (08:54)
[2023-01-18] MEDS: COLCHICINE 0.6 MG TAB PO SCH (08:54)
[2023-01-18] MEDS: PANTOprazole 40 MG TAB PO SCH (08:54)
[2023-01-18] MEDS: APIXABAN 5 MG TABLET PO SCH (08:54)
[2023-01-18] MEDS: METOPROLOL SUCC 50MG EXT REL TAB PO SCH (08:55)
[2023-01-18] MEDS: FOLIC ACID 1 MG TAB PO SCH (08:55)
[2023-01-18] MEDS: MULTIVITAMIN TAB PO SCH (08:55)
[2023-01-18] MEDS: predniSONE 5 MG TAB PO SCH (08:55)
[2023-01-18] MEDS ORDERED: metHOTREXate sodium 2.5 MG TAB PO SCH (09:00)
== END 2023-01-18 12:00 | disposition home health service (06) ==
LOC: 3E 07:55 → ASU 07:55